=== PATIENT | female | born 1955 | race Caucasian/White ===

== ENCOUNTER 2021-08-31 15:54 | Inpatient (IN) | payer MEDICARE, SELFPAY ==
[2021-08-31] VITALS (20 sets, daily range): BP systolic 85–150; BP diastolic 48–78; PULSE 80–87; RESP 14–36; O2SAT 86–100
--- NOTE | ~2021-08-31 | XR_ITS ---
MODIFIED ESOPHAGRAM HISTORY: Aspiration pneumonia TECHNIQUE: Modified barium esophagram was performed by speech pathologist under radiologist fluorosco pic guidance. This was recorded on tape. The exam was reviewed on 09/02/2021 10:35 RADIO AERIAL INSTALLER. The DAP for this procedure was 1.6 Gycm2. Fluoroscopy time is 2.2 minutes. FINDINGS: Lateral projection of the cervical spine demonstrates normal alignment. Oral stage of is within normal limits. There is reduced laryngeal elevation, reduced tongue base retraction and follic ular residue as well as pharyngeal wall residue. There is trace laryngeal penetration without aspirat ion. IMPRESSION: 1: Trace laryngeal penetration with thin liquids without aspiration. 2: Please refer to speech pathologist report for additional detail. Reviewed, dictated and finalized at location A. O AERIAL INSTALLER
--- NOTE | ~2021-08-31 | XR_ITS ---
EXAMINATION: XR chest 1V portable INDICATION: Hypoxia TECHNIQUE: Portable AP chest at 1759 hours COMPARISON: None available FINDINGS: A tracheostomy is noted. There are interstitial and airspace opacities throughout all lung zones. No pleural effusion or pneumothorax is identified. Cardiomegaly is noted. A dual-lead cardiac pacemaker of the left chest wall ends with leads in expected locations. There are changes of cardiac valve surgery. IMPRESSION: 1. Cardiomegaly. 2. Diffuse lung disease which may reflect pneumonia and/or pulmonary edema. Reviewed, dictated and finalized at location F. MATION SOFTWARE ENGINEER
--- NOTE | ~2021-08-31 | CT_ITS ---
EXAMINATION: CT chest abdomen pelvis w con DATE: 09/01/2021 14:31 FLOW WORKER INDICATION: Leukocytosis. Wound VAC on chest. Pneumonia. TECHNIQUE: Computed tomography (CT) of the chest, abdomen, and pelvis was performed with 100 cc Omnip aque 350 intravenous contrast. The dose-length product was 1780.69 mGy-cm. Automated exposure control and iterative reconstruction technique were employed. COMPARISON: None FINDINGS: CHEST CT: There is subcutaneous soft tissue gas of the anterior chest wall. No drainable fluid collection is id entified. There is a tracheostomy tube present. Cardiomegaly. Small right pleural effusion. No thorac ic lymphadenopathy. This post median sternotomy for CABG. There is moderate edema and fluid of the ab dominal wall. There are patchy groundglass opacities with more focal consolidation of the right lower lobe, suspicious for pneumonia. Enlarged pulmonary arteries consistent with pulmonary hypertension. No large central pulmonary embolism. Cardiac pacemaker is present. There is ectasia of the thoracic a anthony.. ABDOMEN/PELVIS CT: Fatty infiltration of the liver. There is diffuse subcutaneous edema and fluid involving the abdomina l wall without evidence for drainable fluid collection. Butt catheter present in the bladder. Fatty infiltration of the liver. The spleen, pancreas, adrenal glands are unremarkable. There are gallstone s. There is a percutaneous gastrostomy present. There is advanced degenerative disc disease and spond ylosis of the lower thoracic and lumbar spine. There is ascites. Nonobstructive bowel gas pattern. IMPRESSION: 1. Abnormal subcutaneous chest wall gas and fatty infiltration, suspicious for infection. No drainabl e fluid collection identified. 2: Patchy groundglass opacities bilaterally, more confluent in the right lower lobe, suspicious for p neumonia. 3: Small right pleural effusion. 4: Diffuse subcutaneous edema and fluid of the abdominal wall without drainable fluid collection. 5: Cholelithiasis. 6: Small amount of ascites. Reviewed, dictated and finalized at location A. WORKER IMPRESSION: 1. Abnormal subcutaneous chest wall gas and fatty infiltration, suspicious for infection. No drainable fluid collection identified. 2: Patchy groundglass opacities bilaterally, more confluent in the right lower lobe, suspicious for pneumonia. 3: Small right pleural effusion. 4: Diffuse subcutaneous edema and fluid of the abdominal wall without drainabl e fluid collection. 5: Cholelithiasis. 6: Small amount of ascites.
--- NOTE | 2021-08-31 16:25 | ED.GENADULT ---
HPI - General Adult General Chief complaint: Unspecified Stated complaint: dislodged trach tube Time Seen by Provider: 08/31/21 16:00 Source: patient and RN notes reviewed Limitations: no limitations History of Present Illness HPI narrative: 66-year-old female with suspected recent history of tracheostomy presents to the emergency department from a local group home after her tracheostomy was dislodged. shelter was unable to replace the tube. They did place a size 2 ET tube. Upon arrival to the emergency room patient's trach was cleaned and replaced. Patient initially reported feeling improved after changing of the trach. Patient states that she feels she is breathing at her baseline. Patient does have a history of congestive heart failure, pulm hypertension, hypertension. Patient does have a trach due to a previous anoxic brain injury. Patient does have a feeding tube and has a wound VAC on her abdomen. shelter was unable to provide very much information on the patient. They state she just arrived to their facility just a few days ago but they are still unsure of which long care facility that she was transferred from. Related Data Allergies Allergy/AdvReac Type Severity Reaction Status Date / Time No Known Allergies Allergy Verified 08/31/21 15:59 Review of Systems Review of Systems: ROS unobtainable: Yes unobtainable due to medical condition Exam Narrative: APPEARANCE: ill appearing HEAD: normocephalic, atraumatic. 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 THROAT/Neck: trach, well appearing RESPIRATORY: Airway patent, respirations nonlabored. Distant breath sounds. Tachypnea CARDIOVASCULAR: Regular rate and rhythm without murmurs rubs or gallops. ABDOMINAL: Soft, nontender, nondistended, normal bowel sounds. Wound vac and feeding tube MUSCULOSKELETAL: Moves all extremities. NEURO: Alert. No focal deficit SKIN: extensive sacral decubitus ulcer. Course Course Emergency Course: Nurse did confirm with the group home that the primary reason for sending the patient in was for trach replacement. No other concerns at this time per group home. Patient began to desat even though her trach was in place. Able to maintain oxygenation on 2 liters. Chest x-ray was ordered and showed cardiomegaly and pulmonary edema versus pneumonia. Patient does have a leukocytosis of 19.8. Patient does have a BNP of 9000. COVID is pending. Patient was also treated with Lasix for her elevated BNP. Patient was treated with IV insulin for her hyperglycemia. Nurse did attempt again to contact both the patient's daughter and the patient's to determine more information where the patient had been hospitalized. Nurse is coming to recall the group home. The case was discussed with the hospitalist with the hospitalist does not feel comfortable admitting the patient to our facility with such a significant yet unknown past medical history. Obtaining chest abdomen and pelvis CT prior to admission here if unable to track down more information regarding her facilities of origin. Vital Signs Vital signs: Vital Signs Pulse Rate 80 08/31/21 15:58 Respiratory Rate 32 H 08/31/21 15:58 Blood Pressure 132/60 08/31/21 15:58 Pulse Oximetry 99 08/31/21 15:58 Pulse Rate 80 09/01/21 00:20 Respiratory Rate 24 H 09/01/21 00:20 Blood Pressure 107/39 L 09/01/21 00:20 Pulse Oximetry 97 09/01/21 00:20 Medical Decision Making Vital Signs Vital Signs: Vital Signs Pulse Rate 80 08/31/21 15:58 Respiratory Rate 32 H 08/31/21 15:58 Blood Pressure 132/60 08/31/21 15:58 Pulse Oximetry 99 08/31/21 15:58 Pulse Rate 80 09/01/21 00:20 Respiratory Rate 24 H 09/01/21 00:20 Blood Pressure 107/39 L 09/01/21 00:20 Pulse Oximetry 97 09/01/21 00:20 Lab Data Lab results reviewed: Yes I reviewed the patient's lab results. Result diagrams: 08/31/21 19:55
[2021-08-31] MEDS: ALBUTEROL SULFATE NEB 2.5 MG/0.5 ML INH 5 MG INHALATION (17:06)
--- NOTE | 2021-08-31 19:42 | PC.NURSE ---
Unsuccessful IV attempt x 1 (per Hardy RN PICC line is not pulling labs but flushes well). Pt refusing to let this RN place an IV at this time. Pulls arm away and states No, I am done. Also refusing blood cultures. Dr Shaw discussing w/ pt at this time.
[2021-08-31 19:45] LABS: Glucose Point of Care 395 mg/dl (65-105)
[2021-08-31 20:16] LABS: Basophils Absolute Auto 0.1 K/mm3 (0.0-0.1); Basophils Percent Auto 0.3 % (0.2-1.2); Hematocrit 25.4 % (37.0-47.0); Hemoglobin 7.7 g/dL (12.0-15.0); Immature Granulocyte Absolute 0.26 K/mm3 (0.00-0.031); Immature Granulocyte Percent A 1.3 % (0-0.5); Lymphocytes Absolute Auto 2.85 K/mm3 (0.9-3.2); Lymphocytes Percent Auto 14.4 % (18.3-44.2); Mean Corpuscular HGB Conc 30.3 g/dl (32-36); Mean Corpuscular Hemoglobin 24.5 pg (26-34); Mean Corpuscular Volume 80.9 fl (80-100); Mean Platelet Volume 9.3 fl (7.4-10.4); Monocytes Absolute Auto 1.7 K/mm3 (0.1-0.6); Monocytes Percent Auto 8.3 % (2.6-8.5); Neutrophils Percent Auto 75.7 % (45.5-73.1); Nucleated Red Blood Cells Absolute Auto 0.1 K/mm3 (0.0-0.012); Nucleated Red Blood Cells Perc 0.3 % (0.0-0.2); Platelet Count Result 756 k/mm3 (150-375); Red Blood Count 3.14 M/mm3 (4.2-5.4); Red Cell Distribution Width 22.3 % (11.5-14.5); White Blood Count 19.8 K/mm3 (4.5-10.0)
[2021-08-31 20:36] LABS: NT Pro B Type Natriuretic Pept 9130 pg/mL (5-100)
[2021-08-31 20:51] LABS: Alanine Aminotransferase 29 U/L (4-35); Albumin Level 3.2 g/dL (3.5-5.1); Alkaline Phosphatase 283 U/L (38-126); Anion Gap 10 mmol/L (8-16); Aspartate Amino Transferase 48 U/L (14-36); Bilirubin,Total 0.7 mg/dL (0.2-1.3); Blood Urea Nitrogen 60 mg/dL (7-17); Calcium 8.3 mg/dL (8.4-10.2); Carbon Dioxide 33 mmol/L (22-30); Chloride 86 mmol/L (98-107); Estimated CRCL calculation 73 ml/min; Estimated Glomerular Filt Rate > 60; Glucose 375 mg/dL (65-110); Potassium 4.4 mmol/L (3.4-5.0); Sodium 129 mmol/L (137-145)
[2021-08-31] MEDS: FUROSEMIDE INJ 100 MG/10 ML VIAL 80 MG IV PUSH (22:17)
--- NOTE | 2021-08-31 22:19 | PC.NURSE ---
Called [facility] for information - spoke to Sameera CALHOUN and was unable to provide previous hospital or any other info. Will call back w/ information. Also tried emergency contact number listed in [place] papers (daughter) no answer and no VM set up.
[2021-08-31 23:23] LABS: Troponin I 0.016 ng/mL (0.000-0.034)
[2021-09-01] VITALS (27 sets, daily range): BP systolic 91–142; BP diastolic 37–70; PULSE 69–80; RESP 16–35; TEMP 36.2–36.9; O2SAT 93–100; BMI 41.2
--- NOTE | 2021-09-01 00:11 | PC.NURSE ---
Called [facility] and requested info on pt arrival to ID and prior hospital for purpose of treatment. Per LJ Rea - she cannot find information, will continue to look and call back w/ any information. Hospitalist and EDP made aware of no new information. Called on contact list and LMTCB w/ no answer.
[2021-09-01] MEDS: INSULIN HUMAN REGULAR (*BKC) 100 UNITS/ML 7 UNITS IV PUSH (00:17)
--- NOTE | 2021-09-01 01:18 | PC.NURSE ---
BS 312
[2021-09-01 01:20] LABS: Glucose Point of Care 312 mg/dl (65-105)
--- NOTE | 2021-09-01 01:32 | PM.IMHP ---
H&P: HPI History of Present Illness Date/Time: 08/31/21 22:30 Chief Complaint: Dislodged tracheostomy Narrative: Source of information: Limited as will only have the med rec and face sheet from the [facility]. 66-year-old female with a past medical history of CHF, pulmonary hypertension, aortic and mitral valve replacement, diabetes mellitus, anoxic brain injury, respiratory failure with subsequent tracheostomy and G-tube placement who [facility] the ER from [facility] after her tracheostomy became dislodged. The patient was just [facility] . Multiple attempts were made to contact the patient's family and [facility] staff to obtain further information. half-way staff stated that they did not know any information on the patient except for the face sheet and med rec. Patient had some out dislodged her tracheostomy today and was sent to the ER to have it replaced. half-way did place a size 2 ET tube until the patient arrived to the ER. In the ER they were able to clean the patient's trach and replaced it. However after the tracheostomy was replaced the patient was noted to be hypoxic. She was placed on 2 L nasal cannula. Subsequently chest x-ray was performed which demonstrated pneumonia. The patient who is only alert oriented to self reported that she was not having any increased shortness of breath from baseline. She denied any recent cough. She is chronically incontinent of urine and stool. She has a Butt catheter in place at the time my evaluation. On exam she is noted to have an extremely large and tunneling buttock decubitus ulcer. She also had a wound VAC in place in substernal region. According to the [facility] records she has a breast/lower chest wound VAC. The reason for the wound VAC is unclear. I suspect that this is due to postop infection following her valve replacements but this is also position. The patient was afebrile in the ER. Patient has a G-tube in place there is no evidence of erythema around the G-tube. Labs returned demonstrating significant leukocytosis with a white count of 19.8 and an elevated BNP of 9000. The patient's immunization status is unknown. She was tested for COVID in the ER and results are pending. She received a dose of Lasix in the ER due to elevated BMP. She was noted to be markedly hyperglycemic and received a dose of IV insulin. Nursing staff tried to contact patient's family and [facility] staff. [facility] staff could not provide any relevant information. Family was unreachable. When the patient arrived to room she had stools packed of in her decubitus ulcer. Review of Systems Review of Systems: ROS unobtainable: Yes unobtainable due to mental status PMFSH Past Medical History Medical History (Updated 09/01/21 @ 13:58 by Jose F Barajas MD) Anoxic brain injury CHF (congestive heart failure) Chronic anemia Diabetes mellitus Hyperlipidemia Surgical History Surgical History (Updated 09/01/21 @ 20:40 by Joselin Collins DO) Gastrointestinal tube in situ History of aortic valve replacement History of mitral valve replacement Status cardiac pacemaker Tracheostomy in place Family History Family History Other Unknown family medical history Social History Social History (Updated 09/01/21 @ 09:18 by Joselin Collins DO) Social History: The patient is residing in a [facility] following anoxic brain injury with tracheostomy and G-tube placement. She was [facility] to [facility] 08/30/2021. Smoking status: Never smoker Alcohol intake: never Substance use: never Spiritual care concerns: No Meds Home Medications and Allergies Home Medications Medication Instructions Recorded Confirmed Type Fleet Enema 1 100 ml RECTAL PRN PRN 09/01/21 09/01/21 History aspirin 81 mg PO DAILY 09/01/21 09/01/21 Hist
[2021-09-01] MEDS: SODIUM CHLORIDE 0.9% IV 1,000 ML 125 ML IV CONT ×3 (05:54→19:52)
--- NOTE | 2021-09-01 06:25 | PC.NURSE ---
Pt trach suctioned at this time, 10 [place].
[2021-09-01] MEDS: INSULIN GLARGINE (*BKC) 100 UNITS/ML 15 UNITS SUB-Q (07:47)
[2021-09-01 07:56] LABS: Glucose Point of Care 295 mg/dl (65-105)
[2021-09-01 08:13] LABS: Add Urine Microscopic? NO; Appearance Urine Clear (Clear); Bilirubin Urine Negative (Negative); Blood Urine Negative (Negative); Color Urine Yellow (Yellow); Glucose Urine UA Negative (Negative); Ketones Urine Negative (Negative); Leukocyte Esterase Ur Negative LEU/UL (Negative); Nitrate Urine Negative (Negative); Protein Urine Negative (Negative); Urobilinogen Urine Negative mg/dL (<2.0)
--- NOTE | 2021-09-01 09:22 | PCSTNOTE ---
Addendum entered by Santi Rodrigez, SAW BOSS 09/01/21 10:37: Hospitalist is Jose F Barajas, attempted once more to reach. Treating RN made aware of hold on MBS. Original Note: Spoke with radiology regarding the MBS ordered for this patient. They stated that it is still protocol to wait until the COVID-pending status is confirmed negative. Radiology also indicated that they are only doing stat procedures as the system is down for now until further notice. Attempted to reach the hospitalist, however she is unavailable at this time.
[2021-09-01 09:29] LABS: Basophils Absolute Auto 0.1 K/mm3 (0.0-0.1); Basophils Percent Auto 0.3 % (0.2-1.2); Eosinophils Absolute Auto 0.2 K/mm3 (0-0.3); Eosinophils Percent Auto 0.8 % (0-4.4); Hematocrit 24.2 % (37.0-47.0); Hemoglobin 7.4 g/dL (12.0-15.0); Immature Granulocyte Absolute 0.21 K/mm3 (0.00-0.031); Immature Reticulocyte Fraction 42.1 % (3.0-15.9); Lymphocytes Absolute Auto 2.78 K/mm3 (0.9-3.2); Lymphocytes Percent Auto 13.5 % (18.3-44.2); Mean Corpuscular HGB Conc 30.6 g/dl (32-36); Mean Corpuscular Hemoglobin 24.3 pg (26-34); Mean Corpuscular Volume 79.3 fl (80-100); Mean Platelet Volume 9.1 fl (7.4-10.4); Monocytes Absolute Auto 1.7 K/mm3 (0.1-0.6); Monocytes Percent Auto 8.1 % (2.6-8.5); Neutrophils Absolute Auto 15.7 K/mm3 (1.3-6.7); Neutrophils Percent Auto 76.3 % (45.5-73.1); Nucleated Red Blood Cells Perc 0.1 % (0.0-0.2); Platelet Count Result 749 k/mm3 (150-375); Red Blood Count 3.05 M/mm3 (4.2-5.4); Red Cell Distribution Width 21.8 % (11.5-14.5); Reticulocyte Hemoglobin Conten 22.6 pg (28.2-35.7); Reticulocyte Percent 4.17 % (0.7-4.3); Reticulocytes Absolute 0.13 B/L (32.2-175.7); White Blood Count 20.6 K/mm3 (4.5-10.0)
[2021-09-01 09:45] LABS: Alanine Aminotransferase 25 U/L (4-35); Albumin Level 3.1 g/dL (3.5-5.1); Alkaline Phosphatase 251 U/L (38-126); Anion Gap 7 mmol/L (8-16); Aspartate Amino Transferase 34 U/L (14-36); Bilirubin,Total 0.6 mg/dL (0.2-1.3); Blood Urea Nitrogen 52 mg/dL (7-17); Calcium 8.3 mg/dL (8.4-10.2); Carbon Dioxide 34 mmol/L (22-30); Chloride 87 mmol/L (98-107); Estimated CRCL calculation 73 ml/min; Estimated Glomerular Filt Rate > 60; Glucose 295 mg/dL (65-110); Magnesium 1.8 mg/dL (1.6-2.3); Phosphorus 3.5 mg/dL (2.5-4.5); Potassium 3.6 mmol/L (3.4-5.0); Sodium 128 mmol/L (137-145)
--- NOTE | 2021-09-01 09:58 | PC.NURSE ---
this RN noticed pt desatting on monitor. assessed pt and trach. trach clogged with mucous. suctioned and cleaned trach and turned up O2 from 35% to 55%. Pt currently 95%
[2021-09-01] MEDS: INSULIN ASPART (*BKC) 100 UNITS/ML SUB-Q ×2 (10:14→14:26)
--- NOTE | 2021-09-01 10:17 | P.PNIM_ITS ---
Progress Note: A&P Assessment and Plan (1) Pneumonia: Qualifiers: Laterality: bilateral Lung location: unspecified part of lung Pneumonia type: due to unspecified organism Qualified Code(s): J18.9 - Pneumonia, unspecified organism Code(s): J18.9 - Pneumonia, unspecified organism Status: Acute Assessment and Plan: * Continue vancomycin and Zosyn * SARS-CoV2 rt-PCR pending (2) CHF (congestive heart failure): Qualifiers: Heart failure chronicity: acute on chronic Heart failure type: unspecified Qualified Code(s): I50.9 - Heart failure, unspecified Code(s): I50.9 - Heart failure, unspecified Status: Acute Assessment and Plan: * Receive furosemide 80 mg IV in emergency department * Monitor intake and output * Get records from [facility], re: cardiothoracic surgery (3) Hypoxia: Code(s): R09.02 - Hypoxemia Status: Acute Assessment and Plan: * Supplemental oxygen via tracheostomy (4) Diabetes mellitus with hyperglycemia: Qualifiers: Diabetes mellitus type: type 2 Diabetes mellitus joint terminal attack controller insulin use: with half-way use Qualified Code(s): E11.65 - Type 2 diabetes mellitus with hyperglycemia; Z79.4 - [facility] (current) use of insulin Code(s): E11.65 - Type 2 diabetes mellitus with hyperglycemia Status: Acute Assessment and Plan: * Basal and sliding scale insulin (5) Butt catheter in place: Code(s): Z97.8 - Presence of other specified devices Status: Acute Assessment and Plan: * Butt care per protocol (6) Anemia of chronic disease: Code(s): D63.8 - Anemia in other chronic diseases classified elsewhere Status: Acute Assessment and Plan: * Monitor (7) Decubitus ulcer: Qualifiers: Pressure injury location: sacral region Pressure injury stage: unspecified pressure injury stage Qualified Code(s): L89.159 - Pressure ulcer of sacral region, unspecified stage Code(s): L89.90 - Pressure ulcer of unspecified site, unspecified stage Status: Acute Assessment and Plan: * Wound care consult (8) Encounter for management of wound VAC: Code(s): Z46.89 - Encounter for fitting and adjustment of other specified devices Status: Acute Assessment and Plan: * Inframammary * Wound care consult (9) Thrombocytosis: Code(s): D75.839 - Thrombocytosis, unspecified Status: Acute Assessment and Plan: * Likely due to recent cardiothoracic surgery wound infection (10) Hyponatremia: Code(s): E87.1 - Hypo-osmolality and hyponatremia Status: Acute Assessment and Plan: * Mild * Clinically volume overloaded but effective intravascular volume may be depleted * Suspect this is chronic * TSH is normal, obtain cortisol all and fractional excretion of urea as well as serum and urine osmolality * Monitor and obtain records Subjective Date/time seen: 09/01/21 10:17 Interval history: Admitted August 31 from long-term after being there for only a few days following discharge from long-term acute [facility]. She had a tracheostomy and tube feeding. Because of tracheostomy being display she was sent into the emergency department. She developed desaturation there and was found to have pulmonary infiltrates. New tracheostomy was placed and supplemental high-flow oxygen was provided. Patient became more alert and able to express her needs. Unfortunately the long-term was unable to provide a past history. Chart
--- NOTE | 2021-09-01 10:17 | PM.IMPN ---
Progress Note: A&P Assessment and Plan (1) Pneumonia: Qualifiers: Laterality: bilateral Lung location: unspecified part of lung Pneumonia type: due to unspecified organism Qualified Code(s): J18.9 - Pneumonia, unspecified organism Code(s): J18.9 - Pneumonia, unspecified organism Status: Acute Assessment and Plan: Continue vancomycin and Zosyn SARS-CoV2 rt-PCR pending (2) CHF (congestive heart failure): Qualifiers: Heart failure chronicity: acute on chronic Heart failure type: unspecified Qualified Code(s): I50.9 - Heart failure, unspecified Code(s): I50.9 - Heart failure, unspecified Status: Acute Assessment and Plan: Receive furosemide 80 mg IV in emergency department Monitor intake and output Get records from [facility], re: cardiothoracic surgery (3) Hypoxia: Code(s): R09.02 - Hypoxemia Status: Acute Assessment and Plan: Supplemental oxygen via tracheostomy (4) Diabetes mellitus with hyperglycemia: Qualifiers: Diabetes mellitus type: type 2 Diabetes mellitus ocean transportation intermediary insulin use: with intermediate use Qualified Code(s): E11.65 - Type 2 diabetes mellitus with hyperglycemia; Z79.4 - [facility] (current) use of insulin Code(s): E11.65 - Type 2 diabetes mellitus with hyperglycemia Status: Acute Assessment and Plan: Basal and sliding scale insulin (5) Butt catheter in place: Code(s): Z97.8 - Presence of other specified devices Status: Acute Assessment and Plan: Butt care per protocol (6) Anemia of chronic disease: Code(s): D63.8 - Anemia in other chronic diseases classified elsewhere Status: Acute Assessment and Plan: Monitor (7) Decubitus ulcer: Qualifiers: Pressure injury location: sacral region Pressure injury stage: unspecified pressure injury stage Qualified Code(s): L89.159 - Pressure ulcer of sacral region, unspecified stage Code(s): L89.90 - Pressure ulcer of unspecified site, unspecified stage Status: Acute Assessment and Plan: Wound care consult (8) Encounter for management of wound VAC: Code(s): Z46.89 - Encounter for fitting and adjustment of other specified devices Status: Acute Assessment and Plan: Inframammary Wound care consult (9) Thrombocytosis: Code(s): D75.839 - Thrombocytosis, unspecified Status: Acute Assessment and Plan: Likely due to recent cardiothoracic surgery wound infection (10) Hyponatremia: Code(s): E87.1 - Hypo-osmolality and hyponatremia Status: Acute Assessment and Plan: Mild Clinically volume overloaded but effective intravascular volume may be depleted Suspect this is chronic TSH is normal, obtain cortisol all and fractional excretion of urea as well as serum and urine osmolality Monitor and obtain records Subjective Date/time seen: 09/01/21 10:17 Interval history: [facility] being [facility] for only a few days following discharge from [facility]-term acute care. She had a tracheostomy and tube feeding. Because of tracheostomy being display she was sent into the emergency department. She developed desaturation there and was found to have pulmonary infiltrates. New tracheostomy was placed and supplemental high-flow oxygen was provided. Patient became more alert and able to express her needs. Unfortunately the [facility] was unable to provide a past history. Chart contacts did not return phone calls. September 01 visit. Complains of generalized aching. Thirsty. Asking for soup. Denied focal pain. Denied shortness of breath. Review of Systems Review of Systems: ROS unobtainable: Yes unobtainable due to medical condition Exam Narrative: Frail-appearing elderly female who appears older than her stated age of 66 Sclerae nonicteric Blind left eye. Right eye pupil reac
[2021-09-01 10:23] LABS: Iron 36 ug/dL (37-170)
[2021-09-01 10:33] LABS: Percent Iron Saturation 14 % (20-50)
--- NOTE | 2021-09-01 10:35 | PC.NURSE ---
Speech therapy called and stated that since pt covid swab is not back they have to wait to do the swallow study
[2021-09-01 11:14] LABS: Folic Acid > 20.0 ng/mL (2.76->20); Vitamin B12 > 1000.0 pg/mL (239-931)
--- NOTE | 2021-09-01 11:46 | PC.NURSE ---
repositioned pt to her right side, changed depends and linens. Changed wound bandage
--- NOTE | 2021-09-01 12:01 | PC.NURSE ---
Pt asking for pain medication. Called Dr. Barajas and he states he will put in an order
[2021-09-01] MEDS: ACETAMINOPHEN ELIXIR 325 MG/10.15 ML UDC 650 MG FEED TUBE (12:29)
--- NOTE | 2021-09-01 13:33 | PC.NURSE ---
attempted to call pt son, Severo. No answer, left a voicemail
--- NOTE | 2021-09-01 13:51 | PC.NURSE ---
Son, Severo called back and gave me some more information on pt. He states that pt was at [facility] from 05/22/22-08/29/21 for open heart surgery.
--- NOTE | 2021-09-01 13:53 | PC.NURSE ---
Called Dr. Barajas and updated him on the information. Also asked if pt could have some broth. He states he will change diet to clear liquids
[2021-09-01 14:32] LABS: Glucose Point of Care 245 mg/dl (65-105)
[2021-09-01 16:14] LABS: Glucose Point of Care 207 mg/dl (65-105)
--- NOTE | 2021-09-01 16:34 | PC.NURSE ---
This patient, Irish Mtz, was admitted to IMU Room 201-01 on 09/01/21 at 1535. Patient/family oriented to hospital policies and general routines including ID bracelet, bed and alarms, visiting hours, pain management, procedures, bathroom and other care routines, personal items, smoking policy, room service/diet, and visiting hours. Information on how to activate the Rapid Response Team has been discussed. Patient/Family are encouraged to report perceived risks to care and to ask questions if they do not understand what they are told or what they should do.
--- NOTE | 2021-09-01 16:49 | PCRCNOTE ---
Window of time for administration has passed. See next scheduled administration.
[2021-09-01] MEDS: IPRATROPIUM BR 0.02% INH SOLN 0.5 MG/2.5 ML VIAL INHALATION (19:23)
[2021-09-01] MEDS: ALBUTEROL SULFATE NEB 2.5 MG/0.5 ML INH 5 MG INHALATION (19:23)
[2021-09-01] MEDS: ATORVASTATIN 20 MG TABLET FEED TUBE (21:33)
[2021-09-01 21:38] LABS: Glucose Point of Care 150 mg/dl (65-105)
[2021-09-01] MEDS: INSULIN GLARGINE (*BKC) 100 UNITS/ML 40 UNITS SUB-Q (21:50)
[2021-09-01 23:19] LABS: SARS-CoV-2 RNA PCR Negative
[2021-09-01 23:53] LABS: Urea Random Urine 606 MG/DL
[2021-09-02] VITALS (15 sets, daily range): BP systolic 103–123; BP diastolic 47–55; PULSE 80; RESP 20–22; TEMP 35.8–37; O2SAT 93–100
[2021-09-02 00:26] LABS: Prothrombin Time 22.4 Seconds (11.1-14.7)
[2021-09-02] MEDS: ACETAMINOPHEN ELIXIR 325 MG/10.15 ML UDC 650 MG FEED TUBE ×2 (01:50→11:07)
[2021-09-02 02:02] LABS: Glucose Point of Care 150 mg/dl (65-105)
[2021-09-02] MEDS: ALBUTEROL SULFATE NEB 2.5 MG/0.5 ML INH 5 MG INHALATION ×3 (02:11→13:45)
[2021-09-02] MEDS: IPRATROPIUM BR 0.02% INH SOLN 0.5 MG/2.5 ML VIAL INHALATION ×3 (02:12→13:46)
[2021-09-02] MEDS: WARFARIN (*PBKC) 5 MG TABLET PO (03:12)
[2021-09-02] MEDS: SERTRALINE HCL 50 MG TABLET FEED TUBE (03:12)
[2021-09-02] MEDS: MIRTAZAPINE 15 MG TABLET PO (03:14)
[2021-09-02 05:35] LABS: Anion Gap 7 mmol/L (8-16); Blood Urea Nitrogen 40 mg/dL (7-17); Calcium 8.2 mg/dL (8.4-10.2); Carbon Dioxide 33 mmol/L (22-30); Chloride 88 mmol/L (98-107); Estimated CRCL calculation 76 ml/min; Estimated Glomerular Filt Rate > 60; Glucose 161 mg/dL (65-110); Potassium 3.3 mmol/L (3.4-5.0); Sodium 128 mmol/L (137-145)
[2021-09-02 05:37] LABS: Basophils Absolute Auto 0.1 K/mm3 (0.0-0.1); Basophils Percent Auto 0.4 % (0.2-1.2); Eosinophils Absolute Auto 0.5 K/mm3 (0-0.3); Eosinophils Percent Auto 2.7 % (0-4.4); Hematocrit 24.7 % (37.0-47.0); Hemoglobin 7.4 g/dL (12.0-15.0); Immature Granulocyte Absolute 0.16 K/mm3 (0.00-0.031); Immature Granulocyte Percent A 0.8 % (0-0.5); Lymphocytes Absolute Auto 2.73 K/mm3 (0.9-3.2); Lymphocytes Percent Auto 13.5 % (18.3-44.2); Mean Corpuscular Volume 80.2 fl (80-100); Mean Platelet Volume 8.8 fl (7.4-10.4); Monocytes Absolute Auto 1.7 K/mm3 (0.1-0.6); Monocytes Percent Auto 8.4 % (2.6-8.5); Neutrophils Percent Auto 74.2 % (45.5-73.1); Nucleated Red Blood Cells Perc 0.1 % (0.0-0.2); Platelet Count Result 710 k/mm3 (150-375); Red Blood Count 3.08 M/mm3 (4.2-5.4); Red Cell Distribution Width 21.8 % (11.5-14.5); White Blood Count 20.2 K/mm3 (4.5-10.0)
[2021-09-02] MEDS: HYDROGEN PEROXIDE 3% SOLN(*SP) 473 ML BOTTLE (06:50)
[2021-09-02] MEDS: LANSOPRAZOLE ORAL SUSP 30 MG/10 ML ORAL.SUSP FEED TUBE (07:21)
[2021-09-02] MEDS: POTASSIUM PHOS/SODIUM PHOS 250 MG TABLET FEED TUBE ×3 (07:21→16:51)
[2021-09-02] MEDS: POTASSIUM CHLORIDE 20 MEQ PACKET (FOR LIQUID) 40 MEQ FEED TUBE (08:27)
[2021-09-02] MEDS: LOSARTAN POTASSIUM 25 MG TABLET PO (08:32)
[2021-09-02] MEDS: FUROSEMIDE 20 MG TABLET FEED TUBE (08:32)
[2021-09-02] MEDS: CHOLECALCIFEROL 1,000 UNITS TABLET 1000 UNITS FEED TUBE ×2 (08:33→16:51)
[2021-09-02] MEDS: FLUCONAZOLE 100 MG TABLET 200 MG FEED TUBE (08:33)
[2021-09-02] MEDS: LATANOPROST 0.005% OP SOLN 2.5 ML BTL 1 DROP RIGHT EYE (08:33)
[2021-09-02] MEDS: ASPIRIN 81 MG CHEWABLE TABLET FEED TUBE (08:33)
--- NOTE | 2021-09-02 09:21 | P.PNIM_ITS ---
Progress Note: A&P Assessment and Plan (1) Pneumonia: Qualifiers: Laterality: bilateral Lung location: unspecified part of lung Pneumonia type: due to unspecified organism Qualified Code(s): J18.9 - Pneumonia, unspecified organism Code(s): J18.9 - Pneumonia, unspecified organism Status: Acute Assessment and Plan: * Continue daptomycin, linezolid, and metronidazole as ordered following discharge from [facility] * Continue Zosyn as begun by emergency department September 01 * SARS-CoV2 rt-PCR negative (2) CHF (congestive heart failure): Qualifiers: Heart failure chronicity: acute on chronic Heart failure type: unspecified Qualified Code(s): I50.9 - Heart failure, unspecified Code(s): I50.9 - Heart failure, unspecified Status: Acute Assessment and Plan: * Receive furosemide 80 mg IV in emergency department 09/01 * Monitor intake and output * Get records from [facility], re: cardiothoracic surgery * Continue PO furosemide, metoprolol, losartan as her BP tolerates (3) Hypoxia: Code(s): R09.02 - Hypoxemia Status: Acute Assessment and Plan: * Supplemental oxygen via tracheostomy (4) Diabetes mellitus with hyperglycemia: Qualifiers: Diabetes mellitus type: type 2 Diabetes mellitus custodial insulin use: with clutch rebuilder use Qualified Code(s): E11.65 - Type 2 diabetes mellitus with hyperglycemia; Z79.4 - beach expert (current) use of insulin Code(s): E11.65 - Type 2 diabetes mellitus with hyperglycemia Status: Acute Assessment and Plan: * Basal and sliding scale insulin (5) Anemia of chronic disease: Code(s): D63.8 - Anemia in other chronic diseases classified elsewhere Status: Acute Assessment and Plan: * Monitor H/H, s/sx bleeding (6) Decubitus ulcer: Qualifiers: Pressure injury location: sacral region Pressure injury stage: unspecified pressure injury stage Qualified Code(s): L89.159 - Pressure ulcer of sacral region, unspecified stage Code(s): L89.90 - Pressure ulcer of unspecified site, unspecified stage Status: Acute Assessment and Plan: * Right heel * Continue daptomycin, linezolid, and metronidazole as ordered following discharge from [facility] * Wound care consult (7) Encounter for management of wound VAC: Code(s): Z46.89 - Encounter for fitting and adjustment of other specified devices Status: Acute Assessment and Plan: * Inframammary * Continue daptomycin, linezolid, and metronidazole as ordered following discharge from [facility] * Wound care consult (8) Thrombocytosis: Code(s): D75.839 - Thrombocytosis, unspecified Status: Acute Assessment and Plan: * Likely due to recent cardiothoracic surgery and wound infection (9) Hyponatremia: Code(s): E87.1 - Hypo-osmolality and hyponatremia Status: Acute Assessment and Plan: * Mild * Clinically volume overloaded but effective intravascular volume may be depleted * Suspect this is chronic * TSH is normal and cortisol is normal * FEurea = pending * Monitor and obtain records from [facility] (10) Sepsis: Qualifiers: Sepsis acute organ dysfunction status: with acute organ dysfunction Acute respiratory failure type: with hypoxia Severe sepsis shock status: with septic shock Sepsis type: sepsis due to unspecified organism Severe sepsis acute organ dysfunction type: acute respiratory failure Qualified Code(s): A41.9 - Sepsi
--- NOTE | 2021-09-02 09:21 | PM.IMPN ---
Progress Note: A&P Assessment and Plan (1) Pneumonia: Qualifiers: Laterality: bilateral Lung location: unspecified part of lung Pneumonia type: due to unspecified organism Qualified Code(s): J18.9 - Pneumonia, unspecified organism Code(s): J18.9 - Pneumonia, unspecified organism Status: Acute Assessment and Plan: Continue daptomycin, linezolid, and metronidazole as ordered following discharge from [facility] Continue Zosyn as begun by emergency department September 01 SARS-CoV2 rt-PCR negative (2) CHF (congestive heart failure): Qualifiers: Heart failure chronicity: acute on chronic Heart failure type: unspecified Qualified Code(s): I50.9 - Heart failure, unspecified Code(s): I50.9 - Heart failure, unspecified Status: Acute Assessment and Plan: Receive furosemide 80 mg IV in emergency department 09/01 Monitor intake and output Get records from [facility], re: cardiothoracic surgery Continue PO furosemide, metoprolol, losartan as her BP tolerates (3) Hypoxia: Code(s): R09.02 - Hypoxemia Status: Acute Assessment and Plan: Supplemental oxygen via tracheostomy (4) Diabetes mellitus with hyperglycemia: Qualifiers: Diabetes mellitus type: type 2 Diabetes mellitus termination clerk insulin use: with termination clerk use Qualified Code(s): E11.65 - Type 2 diabetes mellitus with hyperglycemia; Z79.4 - intermediate school teacher (current) use of insulin Code(s): E11.65 - Type 2 diabetes mellitus with hyperglycemia Status: Acute Assessment and Plan: Basal and sliding scale insulin (5) Anemia of chronic disease: Code(s): D63.8 - Anemia in other chronic diseases classified elsewhere Status: Acute Assessment and Plan: Monitor H/H, s/sx bleeding (6) Decubitus ulcer: Qualifiers: Pressure injury location: sacral region Pressure injury stage: unspecified pressure injury stage Qualified Code(s): L89.159 - Pressure ulcer of sacral region, unspecified stage Code(s): L89.90 - Pressure ulcer of unspecified site, unspecified stage Status: Acute Assessment and Plan: Right heel Continue daptomycin, linezolid, and metronidazole as ordered following discharge from [facility] Wound care consult (7) Encounter for management of wound VAC: Code(s): Z46.89 - Encounter for fitting and adjustment of other specified devices Status: Acute Assessment and Plan: Inframammary Continue daptomycin, linezolid, and metronidazole as ordered following discharge from [facility] Wound care consult (8) Thrombocytosis: Code(s): D75.839 - Thrombocytosis, unspecified Status: Acute Assessment and Plan: Likely due to recent cardiothoracic surgery and wound infection (9) Hyponatremia: Code(s): E87.1 - Hypo-osmolality and hyponatremia Status: Acute Assessment and Plan: Mild Clinically volume overloaded but effective intravascular volume may be depleted Suspect this is chronic TSH is normal and cortisol is normal FEurea = pending Monitor and obtain records from [facility] (10) Sepsis: Qualifiers: Sepsis acute organ dysfunction status: with acute organ dysfunction Acute respiratory failure type: with hypoxia Severe sepsis shock status: with septic shock Sepsis type: sepsis due to unspecified organism Severe sepsis acute organ dysfunction type: acute respiratory failure Qualified Code(s): A41.9 - Sepsis, unspecified organism; R65.21 - Severe sepsis with septic shock; J96.01 - Acute respiratory failure with hypoxia Code(s): A41.9 - Sepsis, unspecified organism Status: Acute Assessment and Plan: Present on admission with leukocytosis, known soft tissue infection, possible pneumonia, hypotension, hypoxia (11) Butt catheter in place: Code(s): Z97.8 - Presence of other specified devices
[2021-09-02] MEDS: metroNIDAZOLE 250 MG TABLET 500 MG PO ×2 (11:07→15:41)
[2021-09-02] MEDS: DAPTOmycin 500 MG in SODIUM CHLORIDE 0.9% IV 50 ML 100 MG IVPB (11:08)
[2021-09-02] MEDS: LINEZOLID 600 MG TABLET PO (11:09)
--- NOTE | 2021-09-02 13:07 | PCSTNOTE ---
Please refer to the Modified Barium Swallow Evaluation in the EMR.
[2021-09-02 13:13] LABS: Glucose Point of Care 172 mg/dl (65-105)
[2021-09-02] MEDS: hydrOXYzine HCL 25 MG TABLET 50 MG FEED TUBE (15:42)
--- NOTE | 2021-09-02 15:56 | PM.CNCAR ---
Assessment and Plan Assessment and plan (1) Pacemaker lead malfunction: Code(s): T82.110A - Breakdown (mechanical) of cardiac electrode, initial encounter Status: Acute Assessment and Plan: The patient is ventricular lead is showing intermittent non capture with a high impedance suggesting there may be an impending lead fracture/failure. We also do not know what the ventricular threshold is today since this was a remote check. Also the ventricular threshold was high on her last checkup. The longest pause we have seen is 9.8 seconds. There was no ventricular escape during that time. I have seen an occasional QRS complex but overall the patient appears to be pacemaker dependent ornearly dependent. I have spoken to the patient, the patient's son Severo (previously also her POA), and the patient's Micheal (who is her guardian, ) as well as a cardiac thoracic surgeon family friend Dr. Mohesn Caro. Apparently she had some type of pacer problem before (noted in interrogation re: atrial lead issue in the past) but this seems to be a new problem or at lead a progressive and also a very critical problem as she appears to be pacemaker dependent. I discussed options such as a temporary transvenous pacemaker wire, transfer to [facility], external pacing etc.. They requested transfer to [facility]. I discussed her situation with her surgeon, Dr. Alfredo Michaels who is going to contact the capter to see if she can be transferred to [facility]. I have discussed her situation with a pacemaker aircraft sales representative and have requested a personal interrogation of the device to see if we can program around the situation and obtain and true ventricular threshold. She may need a temporary transvenous pacemaker either here or at another institution to provide some security while a lasting solution is available and her infections clear. With her chest wound and sacral decubitus she is at risk of pacemaker infection if RV lead revision is attempted. I wonder if a leadless pacemaker would be a better solution? In the meantime, will place temporary pacing pads in case this situation progresses. However pt has said repeatedly that she does not want anything done here. (2) History of mitral valve replacement: Code(s): Z95.2 - Presence of prosthetic heart valve Status: Inactive Assessment and Plan: Mechanical mitral valve replacement 04/2021. (3) H/O mechanical aortic valve replacement: Code(s): Z95.2 - Presence of prosthetic heart valve Status: Acute Assessment and Plan: Mechanical aortic valve replacement 2016. (4) Chronic anticoagulation: Code(s): Z79.01 - roasterman (current) use of anticoagulants Status: Acute Assessment and Plan: INR goal for this patient is 2.5-3.5. INR today was 2.0. Will increase warfarin to 7 mg today then address daily. (5) CAD (coronary artery disease) of artery bypass graft: Code(s): I25.810 - Atherosclerosis of coronary artery bypass graft(s) without angina pectoris Status: Acute Assessment and Plan: CABG 2016. Coronary artery disease appears stable. (6) Anoxic encephalopathy: Code(s): G93.1 - Anoxic brain damage, not elsewhere classified Status: Acute Assessment and Plan: Patient's is her guardian. (7) Wound infection: Code(s): T14.8XXA - Other injury of unspecified body region, initial encounter; L08.9 - Local infection of the skin and subcutaneous tissue, unspecified Status: Acute Assessment and Plan: Has an incisional wound infection, status post procedures of the chest wall and wound VAC. (8) Sacral decubitus ulcer: Code(s): L89.159 - Pressure ulcer of sacral region, unspecified stage Status: Acute Assessment and Plan: Apparently has a sacral decubitus ulcer. (9) Tracheostomy in place: Code(s): Z93.0 - T
[2021-09-02] MEDS: WARFARIN (*PBKC) 5 MG TABLET FEED TUBE (16:51)
[2021-09-02 17:06] LABS: Glucose Point of Care 194 mg/dl (65-105)
--- NOTE | 2021-09-02 17:48 | P.TS_ITS ---
Transfer Discharge Sum: Prov Provider Date of admission: 09/02/21 15:51 Primary care physician: Samara Barajas, Admitting clinician: Joselin Collins DO Consults: 09/01/21 Wound/ET Consult Routine Reason for Consult:: Tunneling decubitus ulcer 09/02/21 Consult to Physician Routine Comment: Consulting Provider: Emilie Thurman Reason for consultation: pacemaker not consistently capturing Has provider been notified: Yes DS: Admitting Diagnosis Discharge Date September 02, 2021 Admitting Diagnosis Pneumonia with acute on chronic hypoxic respiratory failure DS: Discharge Diagnosis Discharge Diagnosis (1) Pneumonia: Qualifiers: Laterality: bilateral Lung location: unspecified part of lung Pneumonia type: due to unspecified organism Qualified Code(s): J18.9 - Pneumonia, unspecified organism Code(s): J18.9 - Pneumonia, unspecified organism Status: Acute Assessment and Plan: * Continue daptomycin, linezolid, and metronidazole as ordered following discharge from [facility] * Continue Zosyn as begun by emergency department September 01 * SARS-CoV2 rt-PCR negative (2) CHF (congestive heart failure): Qualifiers: Heart failure chronicity: acute on chronic Heart failure type: unspecified Qualified Code(s): I50.9 - Heart failure, unspecified Code(s): I50.9 - Heart failure, unspecified Status: Acute Assessment and Plan: * Receive furosemide 80 mg IV in emergency department 09/01 * Monitor intake and output * Get records from [facility], re: cardiothoracic surgery * Continue PO furosemide, metoprolol, losartan as her BP tolerates (3) Hypoxia: Code(s): R09.02 - Hypoxemia Status: Acute Assessment and Plan: * Supplemental oxygen via tracheostomy (4) Diabetes mellitus with hyperglycemia: Qualifiers: Diabetes mellitus type: type 2 Diabetes mellitus machine long goods helper insulin use: with mcfp use Qualified Code(s): E11.65 - Type 2 diabetes mellitus with hyperglycemia; Z79.4 - intermediate manager (current) use of insulin Code(s): E11.65 - Type 2 diabetes mellitus with hyperglycemia Status: Acute Assessment and Plan: * Basal and sliding scale insulin (5) Anemia of chronic disease: Code(s): D63.8 - Anemia in other chronic diseases classified elsewhere Status: Acute Assessment and Plan: * Monitor H/H, s/sx bleeding (6) Decubitus ulcer: Qualifiers: Pressure injury location: sacral region Pressure injury stage: unspecified pressure injury stage Qualified Code(s): L89.159 - Pressure ulcer of sacral region, unspecified stage Code(s): L89.90 - Pressure ulcer of unspecified site, unspecified stage Status: Acute Assessment and Plan: * Right heel * Continue daptomycin, linezolid, and metronidazole as ordered following discharge from [facility] * Wound care consult (7) Encounter for management of wound VAC: Code(s): Z46.89 - Encounter for fitting and adjustment of other specified devices Status: Acute Assessment and Plan: * Inframammary * Continue daptomycin, linezolid, and metronidazole as ordered following discharge from [facility] * Wound care consult (8) Thrombocytosis: Code(s): D75.839 - Thrombocytosis, unspecified Status: Acute Assessment and Plan: * Likely due to recent cardiothoracic surgery and wound infection (9) Hyponatre
--- NOTE | 2021-09-02 17:48 | PM.TDS ---
Transfer Discharge Sum: Prov Provider Date of admission: 09/02/21 15:51 Primary care physician: Samara Barajas, Admitting clinician: Joselin Collins DO Consults: 09/01/21 Wound/ET Consult Routine Reason for Consult:: Tunneling decubitus ulcer 09/02/21 Consult to Physician Routine Comment: Consulting Provider: Emilie Thurman Reason for consultation: pacemaker not consistently capturing Has provider been notified: Yes DS: Admitting Diagnosis Discharge Date September 02, 2021 Admitting Diagnosis Pneumonia with acute on chronic hypoxic respiratory failure DS: Discharge Diagnosis Discharge Diagnosis (1) Pneumonia: Qualifiers: Laterality: bilateral Lung location: unspecified part of lung Pneumonia type: due to unspecified organism Qualified Code(s): J18.9 - Pneumonia, unspecified organism Code(s): J18.9 - Pneumonia, unspecified organism Status: Acute Assessment and Plan: Continue daptomycin, linezolid, and metronidazole as ordered following discharge from [facility] Continue Zosyn as begun by emergency department September 01 SARS-CoV2 rt-PCR negative (2) CHF (congestive heart failure): Qualifiers: Heart failure chronicity: acute on chronic Heart failure type: unspecified Qualified Code(s): I50.9 - Heart failure, unspecified Code(s): I50.9 - Heart failure, unspecified Status: Acute Assessment and Plan: Receive furosemide 80 mg IV in emergency department 09/01 Monitor intake and output Get records from [facility], re: cardiothoracic surgery Continue PO furosemide, metoprolol, losartan as her BP tolerates (3) Hypoxia: Code(s): R09.02 - Hypoxemia Status: Acute Assessment and Plan: Supplemental oxygen via tracheostomy (4) Diabetes mellitus with hyperglycemia: Qualifiers: Diabetes mellitus type: type 2 Diabetes mellitus watermelon inspector insulin use: with watermelon inspector use Qualified Code(s): E11.65 - Type 2 diabetes mellitus with hyperglycemia; Z79.4 - skilled nursing (current) use of insulin Code(s): E11.65 - Type 2 diabetes mellitus with hyperglycemia Status: Acute Assessment and Plan: Basal and sliding scale insulin (5) Anemia of chronic disease: Code(s): D63.8 - Anemia in other chronic diseases classified elsewhere Status: Acute Assessment and Plan: Monitor H/H, s/sx bleeding (6) Decubitus ulcer: Qualifiers: Pressure injury location: sacral region Pressure injury stage: unspecified pressure injury stage Qualified Code(s): L89.159 - Pressure ulcer of sacral region, unspecified stage Code(s): L89.90 - Pressure ulcer of unspecified site, unspecified stage Status: Acute Assessment and Plan: Right heel Continue daptomycin, linezolid, and metronidazole as ordered following discharge from [facility] Wound care consult (7) Encounter for management of wound VAC: Code(s): Z46.89 - Encounter for fitting and adjustment of other specified devices Status: Acute Assessment and Plan: Inframammary Continue daptomycin, linezolid, and metronidazole as ordered following discharge from [facility] Wound care consult (8) Thrombocytosis: Code(s): D75.839 - Thrombocytosis, unspecified Status: Acute Assessment and Plan: Likely due to recent cardiothoracic surgery and wound infection (9) Hyponatremia: Code(s): E87.1 - Hypo-osmolality and hyponatremia Status: Acute Assessment and Plan: Mild Clinically volume overloaded but effective intravascular volume may be depleted Suspect this is chronic TSH is normal and cortisol is normal FEurea = pending Monitor and obtain records from [facility] (10) Sepsis: Qualifiers: Sepsis type: sepsis due to unspecified organism Sepsis acute organ dysfunction status: with acute organ dysfunction
[2021-09-04 19:19] LABS: Osmolality, Urine 414 mOsm/kg (50-1200)
== END 2021-09-02 19:45 | DRG 871 ==
LOC: ANHED 21:25 → ANHIMU 09-01 02:52
PROVIDERS: Emergency Medicine; Admitting Provider Internal Medicine; Emergency Provider Emergency Medicine; PCP Internal Medicine; Visit Provider Internal Medicine
DX: A41.9 Sepsis, unspecified organism (principal); R65.21 Severe sepsis with septic shock; J96.01 Acute respiratory failure with hypoxia; J18.9 Pneumonia, unspecified organism; G93.1 Anoxic brain damage, not elsewhere classified; E87.1 Hypo-osmolality and hyponatremia; T82.110A Breakdown (mechanical) of cardiac electrode, initial encounter; Z43.0 Encounter for attention to tracheostomy; I11.0 Hypertensive heart disease with heart failure; I50.9 Heart failure, unspecified; I27.20 Pulmonary hypertension, unspecified; Z20.822 Contact with and (suspected) exposure to COVID-19; L89.159 Pressure ulcer of sacral region, unspecified stage; Z95.2 Presence of prosthetic heart valve; Z95.0 Presence of cardiac pacemaker; Z79.01 Long term (current) use of anticoagulants; E11.65 Type 2 diabetes mellitus with hyperglycemia; Z93.1 Gastrostomy status; R32 Unspecified urinary incontinence; R15.9 Full incontinence of feces; D63.8 Anemia in other chronic diseases classified elsewhere; D75.839 Thrombocytosis, unspecified; Z79.82 Long term (current) use of aspirin; Z79.4 Long term (current) use of insulin; Y71.1 Therapeutic (nonsurgical) and rehabilitative cardiovascular devices associated with adverse incidents; Y92.9 Unspecified place or not applicable
CPT/HCPCS: 36415; 71045; 71260; 74177; 80048; 80053; 81003; 82533; 82607; 82746; 82948; 83540; 83550; 83735; 83880; 83930; 83935; 84100; 84443; 84484; 84540; 85025; 85046; 85610; 87040; 92611; 94640; 96361; 96365; 96366; 96367; 96375; 96376; 99285; A9270; C9803; G0378; J0878; J1815; J1940; J2543; J3370; J7030; Q9967; U0003; U0005

== ENCOUNTER 2021-09-16 13:09 | Emergency (ER) | payer MEDICARE, SELFPAY ==
[2021-09-16 13:21] VITALS: BP 120/52; PULSE 81; RESP 18; TEMP 36.3; O2SAT 96
[2021-09-16 13:24] VITALS: RESP 18
[2021-09-16 14:00] VITALS: BP 124/60; PULSE 81; RESP 18; TEMP 36.4; O2SAT 96
--- NOTE | 2021-09-16 14:24 | ED.GENADULT ---
HPI - General Adult General Chief complaint: Unspecified Stated complaint: DISLODGED TRACH Time Seen by Provider: 09/16/21 13:58 Source: patient and family Mode of arrival: EMS Limitations: clinical condition History of Present Illness HPI narrative: 66-year-old female Patient is now a resident at a local SNF However before that she was a patient at [facility] where she had and apparently lengthy and complicated course following a heart procedure culminating amongst other difficulties a and the need for a tracheostomy to be placed She is here with her daughter now and neither one of them are quite sure what the plan for the trach is Accounts diverge, the patient indicates that the trach cannula was accidentally dislodged at the SNF, the patient's daughter indicates that she was told that her mom pulled it out Either way it is out, and she seems to be doing just fine without it Her O2 sats are fine at the bedside, she is talking, and seems to be having no issue breathing at all Related Data Home Medications Medication Instructions Recorded Confirmed Fleet Enema 1 100 ml RECTAL PRN PRN 09/01/21 09/01/21 aspirin 81 mg PO DAILY 09/01/21 09/01/21 atorvastatin 20 mg FEEDING TUBE HS 09/01/21 09/01/21 bisacodyl [Laxative (bisacodyl)] 10 mg RECTAL DAILY PRN 09/01/21 09/01/21 cholecalciferol (vitamin D3) 25 mcg PO BID 09/01/21 09/01/21 clonazepam 0.5 mg PO HS 09/01/21 09/01/21 daptomycin 500 mg IV Q24H 09/01/21 09/01/21 fluconazole 200 mg PO DAILY 09/01/21 09/01/21 fluticasone propion-salmeterol 1 ea INHALATION HS 09/01/21 09/01/21 [Advair Diskus] furosemide 20 mg PO DAILY 09/01/21 09/01/21 hydroxyzine HCl 50 mg PO QID PRN 09/01/21 09/01/21 insulin glargine [Basaglar KwikPen 20 unit SUBCUT BID 09/01/21 09/01/21 U-100 Insulin] latanoprost 1 drp RIGHT EYE DAILY 09/01/21 09/01/21 linezolid 600 mg PO Q12H 09/01/21 09/01/21 losartan 25 mg PO DAILY 09/01/21 09/01/21 magnesium citrate [Citroma] 300 ml PO DAILY PRN 09/01/21 09/01/21 magnesium hydroxide [Milk of 400 mg PO HS PRN 09/01/21 09/01/21 Magnesia] metoprolol tartrate 50 mg PO Q12H 09/01/21 09/01/21 metronidazole 500 mg PO Q8H 09/01/21 09/01/21 mirtazapine 15 mg PO HS 09/01/21 09/01/21 pantoprazole 40 mg PO BID 09/01/21 09/01/21 sertraline 50 mg PO HS 09/01/21 09/01/21 sod phos di, mono-K phos mono 1 tablet PO AC 09/01/21 09/01/21 [Phospho-[place] 250 Neutral] warfarin 5 mg PO QPM 09/01/21 09/02/21 Allergies Allergy/AdvReac Type Severity Reaction Status Date / Time No Known Allergies Allergy Verified 08/31/21 15:59 Review of Systems ENT: Comments: Tracheostomy present Respiratory: Respiratory: Reports no additional respiratory complaints, Denies change in phlegm color and Reports cough PMFSH Past Medical History Medical History Anoxic brain injury CAD (coronary artery disease) of artery bypass graft 2015 CHF (congestive heart failure) Chronic anemia Diabetes mellitus Hyperlipidemia Pacemaker Dual chamber [employer] pacemaker, 2016 Surgical History Surgical History Gastrointestinal tube in situ H/O mechanical aortic valve replacement 2016 History of aortic valve replacement History of mitral valve replacement 04/2021, Dr. Alfredo Michaels at [facility] Status cardiac pacemaker Tracheostomy in place Family History Family History Other Unknown family medical history Social History Social History Social History: The patient is residing in a retirement facility following anoxic brain injury with tracheostomy and G-tube placement. She was discharged to retirement facility 08/30/2021. Smoking status: Never smoker Alcohol intake: never Substance use: never Spiritual care concerns: No Ex
--- NOTE | 2021-09-16 14:38 | PC.NURSE ---
ATTEMPTED TO CALL NH TO GIVE REPORTS AND NURSE NOT AVAILABLE. INFORMED ANOTHER NURSE PT IS READY TO RETURN AND EMS HAS BEEN CALLED TO TRANSPORT PT BACK [facility]
[2021-09-16 15:05] VITALS: BP 124/52; PULSE 78; RESP 16; O2SAT 97
[2021-09-16 15:22] VITALS: BP 118/58; PULSE 81; RESP 16; TEMP 36.6; O2SAT 97
== END 2021-09-16 15:24 ==
PROVIDERS: Emergency Provider Emergency Medicine; PCP Internal Medicine
DX: Z43.0 Encounter for attention to tracheostomy (principal); G93.1 Anoxic brain damage, not elsewhere classified; I25.810 Atherosclerosis of coronary artery bypass graft(s) without angina pectoris; I50.9 Heart failure, unspecified; E11.9 Type 2 diabetes mellitus without complications; E78.5 Hyperlipidemia, unspecified; Z93.1 Gastrostomy status; Z95.0 Presence of cardiac pacemaker; D64.9 Anemia, unspecified; Z95.2 Presence of prosthetic heart valve; Z79.82 Long term (current) use of aspirin; Z79.4 Long term (current) use of insulin; Z79.01 Long term (current) use of anticoagulants
CPT/HCPCS: 99282

== ENCOUNTER 2021-09-17 04:31 | Emergency (ER) | payer MEDICARE, SELFPAY ==
--- NOTE | ~2021-09-17 | XR_ITS ---
EXAMINATION: XR chest 1V portable DATE: 09/17/2021 04:59 INDICATION: Dyspnea. TECHNIQUE: A single frontal view of the chest was obtained. COMPARISON: Chest single view 08/31/2021, chest CT 09/17/2021 FINDINGS: There are airspace opacities in the perihilar regions. No visible pleural effusion. No pneu mothorax. Cardiomegaly is noted. There are changes of heart valve replacements. There is a left chest wall pacer with leads in the right atrium and right ventricle. A tracheostomy tube is noted. IMPRESSION: 1. Airspace opacities in the perihilar regions, likely mild pulmonary edema. 2. Cardiomegaly. Reviewed, dictated and finalized at location A. RSHED COORDINATOR
--- NOTE | ~2021-09-17 | CT_ITS ---
EXAMINATION: CTA chest PE protocol DATE: 09/17/2021 06:39 INDICATION: Dyspnea. TECHNIQUE: Computed tomography angiography (CTA) of the chest was performed with 100 mL Omnipaque-350 intravenous contrast timed to evaluate the pulmonary arteries. Coronal maximum intensity projection 3D-reconstructions were created by the technologist. Automated exposure control and iterative reconst ruction technique were employed. The dose-length product was 795.22 mGy-cm. COMPARISON: Chest CT 09/01/2021 FINDINGS: There is a tracheostomy tube in expected position. There is smooth septal thickening in the lungs, consistent with mild pulmonary edema. There is mosaic attenuation in left upper lobe, likely small airways disease. There is a small right pleural effusion. Cardiomegaly is noted. There are lozada ges of mitral and aortic valve replacements. There is a left chest wall pacer with leads in the right atrium and right ventricle. There is thickening of the adrenal glands, likely benign. The central pu lmonary arteries are enlarged, consistent with pulmonary arterial hypertension. There is no pulmonary embolus. There is a wound with packing in anterior chest wall. There are healing bilateral anterior rib fractures. There is moderate thoracic spondylosis. IMPRESSION: 1. No pulmonary embolus. 2. Mild pulmonary edema. 3. Small right pleural effusion. 4. Cardiomegaly. 5. Anterior chest wall wound with packing material. Reviewed, dictated and finalized at location A. TAL RECRUITER
[2021-09-17 04:37] VITALS: BP 154/63; PULSE 86; RESP 25; TEMP 36.6; O2SAT 100
[2021-09-17 04:41] LABS: Glucose Point of Care 356 mg/dl (65-105)
--- NOTE | 2021-09-17 04:45 | ECG_ITS ---
Measurements Intervals [place] Rate: 84 P: ND: 0 QRS: 143 QRSD: 189 T: -4 QT: 455 QTc: 539 Interpretive Statements ELECTRONIC VENTRICULAR PACEMAKER UNDERLYING PROBABLY ATRIAL FLUTTER/TACHYCARDIA BASELINE ARTIFACT- II NO FURTHER INTERPRETATION IS POSSIBLE ABNORMAL ECG Electronically Signed On 09-17-2021 6:40:30 FLATTENING PRESS OPERATOR by Dennis Frey D.O.
--- NOTE | 2021-09-17 04:50 | ED.SOB ---
HPI - SOB/Dyspnea General Chief Complaint: Shortness of Breath/Dyspnea Stated Complaint: clogged trach with labored resps - non labored now Time Seen by Provider: 09/17/21 04:40 Source: patient History of Present Illness HPI Narrative: Patient with complex medical history she had a mitral valve replaced several months ago complicated by cardiac arrest resulting in anoxic brain injury tracheostomy placement. She was seen a couple weeks ago at this facility and was transferred to [facility], where her primary care is given, for pacemaker lead malfunction. She returns today for shortness of breath. She resides in a nursing facility. To have acute respiratory distress and a clogged trach which was suctioned and her symptoms improved however she continued to have slight increased work of breathing and was referred to the ER for evaluation. Patient does report feeling short of breath she denies any fevers cough focal areas of pain nausea vomiting or diarrhea. Related Data Home Medications Medication Instructions Recorded Confirmed Fleet Enema 1 100 ml RECTAL PRN PRN 09/01/21 09/01/21 aspirin 81 mg PO DAILY 09/01/21 09/01/21 atorvastatin 20 mg FEEDING TUBE HS 09/01/21 09/01/21 bisacodyl [Laxative (bisacodyl)] 10 mg RECTAL DAILY PRN 09/01/21 09/01/21 cholecalciferol (vitamin D3) 25 mcg PO BID 09/01/21 09/01/21 clonazepam 0.5 mg PO HS 09/01/21 09/01/21 daptomycin 500 mg IV Q24H 09/01/21 09/01/21 fluconazole 200 mg PO DAILY 09/01/21 09/01/21 fluticasone propion-salmeterol 1 ea INHALATION HS 09/01/21 09/01/21 [Advair Diskus] furosemide 20 mg PO DAILY 09/01/21 09/01/21 hydroxyzine HCl 50 mg PO QID PRN 09/01/21 09/01/21 insulin glargine [Basaglar KwikPen 20 unit SUBCUT BID 09/01/21 09/01/21 U-100 Insulin] latanoprost 1 drp RIGHT EYE DAILY 09/01/21 09/01/21 linezolid 600 mg PO Q12H 09/01/21 09/01/21 losartan 25 mg PO DAILY 09/01/21 09/01/21 magnesium citrate [Citroma] 300 ml PO DAILY PRN 09/01/21 09/01/21 magnesium hydroxide [Milk of 400 mg PO HS PRN 09/01/21 09/01/21 Magnesia] metoprolol tartrate 50 mg PO Q12H 09/01/21 09/01/21 metronidazole 500 mg PO Q8H 09/01/21 09/01/21 mirtazapine 15 mg PO HS 09/01/21 09/01/21 pantoprazole 40 mg PO BID 09/01/21 09/01/21 sertraline 50 mg PO HS 09/01/21 09/01/21 sod phos di, mono-K phos mono 1 tablet PO AC 09/01/21 09/01/21 [Phospho-Paola 250 Neutral] warfarin 5 mg PO QPM 09/01/21 09/02/21 Allergies Allergy/AdvReac Type Severity Reaction Status Date / Time No Known Allergies Allergy Unverified 09/17/21 11:39 Review of Systems Review of Systems: CONSTITUTIONAL: Denies fever, chills, or sweats. EYES: Denies visual changes, redness, or discharge. ENT: Denies rhinorrhea, congestion, sore throat, or otalgia. CARDIOVASCULAR: Denies chest pain, palpitations, or edema. RESPIRATORY: Reports shortness of breath GASTROINTESTINAL: Denies abdominal pain, nausea, vomiting, or diarrhea. GENITOURINARY: Denies dysuria or hematuria. SKIN: Denies rash or itching. MUSCULOSKELETAL: Denies back pain, joint pain, or myalgia. NEUROLOGIC: Denies headache, numbness, dizziness, or weakness. PSYCHIATRIC: Denies anxiety or depression. All systems reviewed & are unremarkable except as noted in HPI and below PMFSH Past Medical History Medical History Anoxic brain injury CAD (coronary artery disease) of artery bypass graft 2015 CHF (congestive heart failure) Chronic anemia Diabetes mellitus Hyperlipidemia Pacemaker Dual chamber [employer] pacemaker, 2016 Surgical History Surgical History Gastrointestinal tube in situ H/O mechanical aortic valve replacement 2015 History of aortic valve replacement History of mitral valve replacement 04/2021, Dr. Alfredo Michaels at [facility] Status cardiac pacemaker Tracheostomy in place Family History Family History (Reviewed
[2021-09-17 05:25] LABS: Basophils Absolute Auto 0.1 K/mm3 (0.0-0.1); Basophils Percent Auto 0.5 % (0.2-1.2); Eosinophils Percent Auto 0.1 % (0-4.4); Hematocrit 30.6 % (37.0-47.0); Immature Granulocyte Absolute 0.17 K/mm3 (0.00-0.031); Immature Granulocyte Percent A 1.1 % (0-0.5); Lymphocytes Absolute Auto 0.92 K/mm3 (0.9-3.2); Mean Corpuscular HGB Conc 29.4 g/dl (32-36); Mean Corpuscular Volume 81.6 fl (80-100); Mean Platelet Volume 8.8 fl (7.4-10.4); Monocytes Absolute Auto 1.3 K/mm3 (0.1-0.6); Monocytes Percent Auto 8.1 % (2.6-8.5); Neutrophils Percent Auto 84.2 % (45.5-73.1); Platelet Count Result 568 k/mm3 (150-375); Red Blood Count 3.75 M/mm3 (4.2-5.4); Red Cell Distribution Width 21.2 % (11.5-14.5); White Blood Count 15.4 K/mm3 (4.5-10.0)
[2021-09-17 05:36] LABS: INR 1.9; Partial Thromboplastin Time 32.1 SECONDS (22.3-36.8); Prothrombin Time 21.2 Seconds (11.1-14.7)
[2021-09-17 05:41] LABS: Add Urine Microscopic? YES; Appearance Urine Clear (Clear); Bacteria Urine Trace /hpf; Bilirubin Urine Negative (Negative); Blood Urine 2+ (Negative); Color Urine Amber (Yellow); Glucose Urine UA 1+ mg/dL (Negative); Hyaline Casts Urine 20-29 /lpf; Ketones Urine Negative (Negative); Leukocyte Esterase Ur Negative LEU/UL (Negative); Mucus Urine Few /lpf; Nitrate Urine Negative (Negative); Protein Urine 3+ mg/dL (Negative); RBC Urine >75 /hpf (0-2); Specific Grav Ur 1.022 (1.001-1.035); Squamous Epithelial Cell Urine Occasional /hpf (Few)
[2021-09-17 05:42] LABS: Alanine Aminotransferase 32 U/L (4-35); Albumin Level 3.3 g/dL (3.5-5.1); Alkaline Phosphatase 235 U/L (38-126); Anion Gap 4 mmol/L (8-16); Aspartate Amino Transferase 34 U/L (14-36); Bilirubin,Total 0.6 mg/dL (0.2-1.3); Blood Urea Nitrogen 18 mg/dL (7-17); Calcium 8.6 mg/dL (8.4-10.2); Carbon Dioxide 25 mmol/L (22-30); Chloride 101 mmol/L (98-107); Estimated Glomerular Filt Rate > 60; Glucose 366 mg/dL (65-110); Sodium 130 mmol/L (137-145)
[2021-09-17 05:42] LABS: Alveolar/Arterial O2 Gradient 153.4 mmHg; Base Excess ABG -0.8 mEq/l (+/-2.0); Fractional Inspired Oxygen 44 %; HCO3 ABG 25.2 mEq/l (22.0-26.0); Oxygen Content ABG 13.6 %vol (16.0-22.0); Oxygen Saturation ABG 97.6 % (95.0-100.0); Oxyhemoglobin 96.6 % THb (90.0-100.0); PCO2 ABG 47.4 mmHg (35.0-45.0); PO2 ABG 106.3 mmHg (80.0-100.0); PO2 FiO2 Ratio Arterial Blood 2.42 %; Total Hemoglobin 9.9 g/dL (12.0-18.0); pH ABG 7.343 (7.350-7.450)
[2021-09-17 05:43] LABS: Device OTHER DEVICE; Modified Allen's Test Pass; Site Drawn LEFT RADIAL
[2021-09-17 05:46] VITALS: BP 120/97; PULSE 84; RESP 29; O2SAT 100
[2021-09-17 05:51] LABS: NT Pro B Type Natriuretic Pept 7860 pg/mL (5-100)
[2021-09-17 06:02] LABS: Hypochromasia 1+ (NORMAL); Platelet Estimate Increased (Adequate)
[2021-09-17 06:03] LABS: Anisocytosis 1+ (NORMAL)
[2021-09-17] MEDS: INSULIN HUMAN REGULAR (*BKC) 100 UNITS/ML 7 UNITS SUB-Q (07:29)
[2021-09-17 07:31] VITALS: BP 122/52; PULSE 83; RESP 20; O2SAT 98
[2021-09-17 07:34] LABS: Glucose Point of Care 347 mg/dl (65-105)
--- NOTE | 2021-09-17 07:40 | PC.NURSE ---
made contact with [facility], [facility], and [facility] to transfer pt home to [facility] in [place]. all companies declined. made contact with [facility] to transfer pt. [facility] accepted with [facility] [phone]
--- NOTE | 2021-09-17 08:02 | PC.NURSE ---
wilber has arrived and is aware that pt is going to [facility] in [place]
== END 2021-09-17 08:16 ==
PROVIDERS: Emergency Provider Emergency Medicine; PCP Internal Medicine
DX: R06.00 Dyspnea, unspecified (principal); G93.1 Anoxic brain damage, not elsewhere classified; I25.810 Atherosclerosis of coronary artery bypass graft(s) without angina pectoris; I50.9 Heart failure, unspecified; D64.9 Anemia, unspecified; E78.5 Hyperlipidemia, unspecified; E11.9 Type 2 diabetes mellitus without complications; Z93.0 Tracheostomy status; Z95.0 Presence of cardiac pacemaker; Z95.2 Presence of prosthetic heart valve; Z79.01 Long term (current) use of anticoagulants; Z79.4 Long term (current) use of insulin; Z79.82 Long term (current) use of aspirin; R94.31 Abnormal electrocardiogram [ECG] [EKG]; I51.7 Cardiomegaly; J81.1 Chronic pulmonary edema
CPT/HCPCS: 36415; 36600; 71045; 71275; 80053; 81001; 82805; 82948; 83880; 85025; 85610; 85730; 93005; 99284; J1815; Q9967

== ENCOUNTER 2021-09-17 11:39 | Observation (INO) | payer MEDICARE, SELFPAY ==
[2021-09-17] VITALS (15 sets, daily range): BP systolic 101–161; BP diastolic 46–78; PULSE 82–97; RESP 17–36; TEMP 36.6; O2SAT 96–100
--- NOTE | 2021-09-17 11:51 | PC.NURSE ---
EDP at bedside, Respiratory contacted.
[2021-09-17] MEDS: IPRATROPIUM BR 0.02% INH SOLN 0.5 MG/2.5 ML VIAL INHALATION (12:00)
[2021-09-17] MEDS: ALBUTEROL SULFATE NEB 2.5 MG/3 ML INH 1.25 MG INHALATION (12:00)
--- NOTE | 2021-09-17 12:52 | PC.NURSE ---
Pt suctioned at this time.
--- NOTE | 2021-09-17 13:44 | PC.NURSE ---
called [facility], got response on 3rd call, spoke with RN who states that they do have suction available for pt but they cannot keep up with the secretions she is making. RISK REDUCTION COUNSELOR placed on phone, SUDEEP Ricks speaking with RISK REDUCTION COUNSELOR at this time.
--- NOTE | 2021-09-17 14:17 | ED.SOB ---
HPI - SOB/Dyspnea General Chief Complaint: Shortness of Breath/Dyspnea Stated Complaint: DIFFICULTY BREATHING Time Seen by Provider: 09/17/21 11:47 Source: EMS and RN notes reviewed Mode of arrival: EMS Limitations: clinical condition History of Present Illness HPI Narrative: 66-year-old with a history of hypertension, diabetes, s/p mitral valve replacement followed by cardiac arrest, anoxic brain injury s/p tracheostomy presently residing in a long term who was sent back again for shortness of breath. Patient was seen earlier this morning and was discharged back to the long term and has a work-up was unremarkable. As per the nurse practitioner patient started having more difficulty in breathing upon arrival to the long term. She states that her secretions are more thickened and they are unable to care for her at the long term. As per the EMS they did suction her and her SPO2 improved. Upon arrival patient is anxious but she states that she is feeling fine MD elicited complaint: shortness of breath Pertinent past history: tracheostomy Onset (ago): hour(s) (1) Timing: intermittent Severity: moderate Exacerbating factors: nothing Relieving factors: other (Frequent suctioning) Associated symptoms: denies other symptoms Treatment prior to arrival: oxygen and other (And suctioning) Related Data Home Medications Medication Instructions Recorded Confirmed Fleet Enema 1 100 ml RECTAL PRN PRN 09/01/21 09/01/21 aspirin 81 mg PO DAILY 09/01/21 09/01/21 atorvastatin 20 mg FEEDING TUBE 09/01/21 09/01/21 bisacodyl [Laxative (bisacodyl)] 10 mg RECTAL DAILY PRN 09/01/21 09/01/21 cholecalciferol (vitamin D3) 25 mcg PO BID 09/01/21 09/01/21 clonazepam 0.5 mg PO 09/01/21 09/01/21 daptomycin 500 mg IV Q24H 09/01/21 09/01/21 fluconazole 200 mg PO DAILY 09/01/21 09/01/21 fluticasone propion-salmeterol 1 ea INHALATION HS 09/01/21 09/01/21 [Advair Diskus] furosemide 20 mg PO DAILY 09/01/21 09/01/21 hydroxyzine HCl 50 mg PO QID PRN 09/01/21 09/01/21 insulin glargine [Basaglar KwikPen 20 unit SUBCUT BID 09/01/21 09/01/21 U-100 Insulin] latanoprost 1 drp RIGHT EYE DAILY 09/01/21 09/01/21 linezolid 600 mg PO Q12H 09/01/21 09/01/21 losartan 25 mg PO DAILY 09/01/21 09/01/21 magnesium citrate [Citroma] 300 ml PO DAILY PRN 09/01/21 09/01/21 magnesium hydroxide [Milk of 400 mg PO HS PRN 09/01/21 09/01/21 Magnesia] metoprolol tartrate 50 mg PO Q12H 09/01/21 09/01/21 metronidazole 500 mg PO Q8H 09/01/21 09/01/21 mirtazapine 15 mg PO HS 09/01/21 09/01/21 pantoprazole 40 mg PO BID 09/01/21 09/01/21 sertraline 50 mg PO HS 09/01/21 09/01/21 sod phos di, mono-K phos mono 1 tablet PO AC 09/01/21 09/01/21 [Phospho-Paola 250 Neutral] warfarin 5 mg PO QPM 09/01/21 09/02/21 Allergies Allergy/AdvReac Type Severity Reaction Status Date / Time No Known Allergies Allergy Unverified 09/17/21 11:39 Review of Systems Review of Systems: All systems reviewed & are unremarkable except as noted in HPI and below Constitutional: Constitutional: Reports no additional constitutional complaints Eyes: Eyes: Reports no additional eye complaints ENT: Reports system reviewed and no additional complaints, except as documented Cardiovascular: Cardiovascular: Reports no additional cardiovascular complaints Respiratory: Respiratory: Reports as per HPI Gastrointestinal: Gastrointestinal: Reports no additional gastrointestinal complaints [facility] Past Medical History Medical History Anoxic brain injury CAD (coronary artery disease) of artery bypass graft 2016 CHF (congestive heart failure) Chronic anemia Diabetes mellitus Hyperlipidemia Pacemaker Dual chamber [employer] pacemaker, 2016 Surgical History Surgical History Gastrointestinal tube in situ H/O mechanical aortic valve replacement 2016 History of aortic valve replacement
--- NOTE | 2021-09-17 14:23 | PM.IMHP ---
H&P: HPI History of Present Illness Date/Time: 09/17/21 14:23 this is a 66-year-old female patient who came from the snf earlier today with mucous plugging. Is reported that her trach was changed out today and she was sent back to the snf. She has a history of having a mitral valve replacement followed by cardiac arrest and anoxic brain injury status post tracheostomy. The patient was short of breath and having difficulty breathing upon arrival from the snf. The patient had thickened secretions and EMS suction around her O2 saturations improved. The patient was feeling fine once she got here however the snf was not able to accept her back. The patient did have a CT performed today which was read as no pulmonary embolus. Mild pulmonary edema. Small right pleural effusion. Cardiomegaly. Anterior chest wall wound with packing material. The patient was given a nebulizer treatment. Her white count is now down to 15.4 from her last white count of 20.2 2 weeks ago. Her H&H has improved to 9.0 in 30.6 from 7.4 and 24.72 weeks ago. Her pH on her ABGs 7.343 pCO2 47.4 O2 it 106.3. The patient has humidified oxygen at 6 L to her trach. Her blood sugars 366. The patient is being admitted to observation status on the date of service of 09/17/2021. ( I spoke with her son Severo and was able to retrieve some information. The patient was having difficulty time communicating with me. The son tells me that the patient does eat soft mechanical food and has not been getting any tube feedings. He is not sure why she still has a tube feeding. The patient did have some complications during surgery and was coded 2 times for brief period of time and developed anoxic brain injury. The patient recently received a new pacemaker and an another valve surgery and had complications from that surgery. The patient developed an infection and had a wound VAC to her right upper chest at 1 point. Currently there is she has packing in that abdominal wound now. The patient had been on antibiotics for the wound infection.) Chief Complaint: Shortness of breath Review of Systems Review of Systems: All systems reviewed & are unremarkable except as noted in HPI and below Constitutional: Constitutional: Reports as per HPI and Reports no additional constitutional complaints Eyes: Eyes: Reports as per HPI and Reports no additional eye complaints ENT: Reports system reviewed and no additional complaints, except as documented and Reports Normal hearing present Cardiovascular: Cardiovascular: Reports no additional cardiovascular complaints Respiratory: Respiratory: Reports no additional respiratory complaints and Reports no additional respiratory complaints Gastrointestinal: Gastrointestinal: Reports as per HPI and Reports no additional gastrointestinal complaints Musculoskeletal: Musculoskeletal: Reports no additional musculoskeletal complaints Integumentary/Breasts: Skin/Breast: Reports system reviewed and no additional complaints, except as docu and Reports as per HPI Neurologic: Reports system reviewed and no additional complaints, except as documented, Reports as per HPI and Reports Normal hearing present Psychiatric: Psychiatric: Reports no additional psychiatric complaints and Reports as per HPI Endocrine: Endocrine: Reports no additional endocrine complaints Hematologic/Lymphatic: Hematologic/Lymphatic: Reports no additional hematologic/lymphatic complaints Allergic/Immunologic: Allergic/Immunologic: Reports no additional allergic/immunologic complaints [facility] Past Medical History Medical History Anoxic brain injury CAD (coronary artery disease) of artery bypass graft 2015 CHF (congestive heart failure) Chronic anemia Diabetes mellitus Hyperlipidemia Pacemaker Dual chamber [employer] [facility] pacemaker, 2016 Surgical History Surgical History (Reviewed 09/17/21 @ 17:
--- NOTE | 2021-09-17 14:45 | PC.NURSE ---
Pt trach suctioned at this time.
--- NOTE | 2021-09-17 15:02 | PC.NURSE ---
Pt repositioned and provided pillow
--- NOTE | 2021-09-17 15:27 | PC.NURSE ---
Attempted to suction trach for sputum sample, unable to collect enough for sample.
[2021-09-17] MEDS: SODIUM CHLORIDE 0.9% IV 1,000 ML 50 ML IV CONT (16:08)
[2021-09-17 17:32] LABS: SARS-CoV-2 RNA PCR Negative
--- NOTE | 2021-09-17 17:36 | PC.NURSE ---
Pt moved onto hospital bed, pt trah suctioned.
[2021-09-17 17:46] LABS: Glucose Point of Care 325 mg/dl (65-105)
--- NOTE | 2021-09-17 17:50 | PC.NURSE ---
Lights dimmed at pt's request, bs checked.
--- NOTE | 2021-09-17 18:02 | PC.NURSE ---
ordered pt a diabetic tray.
--- NOTE | 2021-09-17 18:15 | PCCCNOTE ---
Addendum entered by Paulina Fitzpatrick RN 09/17/21 18:39: Correction: Chad unable to determine by admission notes if went to LTAC from [facility] but knows for certain patient was at [facility] and admitted to their facility on 08/30/21. Original Note: Called by senior front end web developer Carol to contact facility about patient back and forth from facility. Called to Cristiana at [facility] who directed call to shear helper Chad. Called to Chad, per records patient was at [facility] for Mitral valve replacement 05/18/22, Cardiac arrest. Trach placed 06/04. Patient discharged to LTAC and admitted to [facility] 08/30/21. On 08/31 trach dislodge and sent to hospital, Readmitted back to [facility] on 09/08, Trach dislodge again on 09/16 and here at [place]. Replaced and sent back this AM to facility, EMS for return to ER several hours after return, Sats down to 81% attempted to suction and sats down to 72%, EMS called and they suctioned with return of sats to 90% but patient continued to be SOB so transported back to ED. Advised that since patient has been back and forth, will be admitted for sputum cultures and trach care. Per Chad very high acuity with frequent suctioning. Discussed return of patient after DC since the patient is their resident. community relations coordinator to send notes that we have so far.
--- NOTE | 2021-09-17 18:41 | PC.NURSE ---
Pt had BM and while cleanin, pt noted to have tunneling wound to sacrum. Wound cleansed and redressed.
--- NOTE | 2021-09-17 18:42 | PC.NURSE ---
Trach suctioned, again, no sputum for collection.
--- NOTE | 2021-09-17 18:56 | PC.NURSE ---
Twyla sent to Chelsea MUÑOZ to inform of sacral wound.
--- NOTE | 2021-09-17 18:58 | PC.NURSE ---
Update given to WANDA Tran who has contacted wound care to see pt.
--- NOTE | 2021-09-17 21:48 | PC.NURSE ---
Pt turned, trach suctioned. Unable to collect enough sputum for specimen.
--- NOTE | 2021-09-17 22:07 | PCRCNOTE ---
Window of time for administration has passed. See next scheduled administration.
[2021-09-18] VITALS (19 sets, daily range): BP systolic 118–150; BP diastolic 50–71; PULSE 76–107; RESP 18–26; TEMP 36.3–36.6; O2SAT 95–100; BMI 10.0; BMI 29.0
--- NOTE | 2021-09-18 | ECHO_ITS ---
Patient Info Name: Irish Mtz Age: 66 years : 1955 Gender: Female Ht: 66 in Wt: 180 lbs BSA: 1.97 m2 HR: 76 bpm BP: 145 / 63 mmHg Heart Rhythm: Sinus Rhythm Technical Quality: Fair Exam Date: 09/18/2021 7:27 AM Exam Location: [facility] Patient Status: Inpatient Admit Date: 09/17/2021 Staff Ordering Physician: Chelsea Vuong NP Settlement Agent: Sandra Wick RDCS Attending Provider: Tatiana Zepeda PA-C Referring Physician: Carolann DAWN; Exam Type: CA echo dop color flow w con Study Info Indications - pleural effusion Complete two-dimensional, color flow and Doppler transthoracic echocardiogram is performed. Summary 1. Complete two-dimensional, color flow and Doppler transthoracic echocardiogram is performed. 2. Technically difficult study, suboptimal image quality. Severe left ventricular hypertrophy, small LV cavity size. Hyperdynamic LV systolic function, ejection fraction more than 70%. Diastolic dysfunction is present. RV enlargement with severe hypokinesis. Atria not well visualized.? Pacemaker lead in RA/RV. Mechanical mitral valve is seen with some reverberation artifact, not well visualized. Mean transmitral gradient 3 mmHg. Mechanical aortic valve is seen, maximum velocity 2 m/sec, mean gradient 8 mmHg. Mild TR, severe pulmonary hypertension, RVSP 76 mmHg. Left Ventricle Left ventricular chamber dimension is decreased. Left ventricular systolic function is hyperdynamic, estimated at >70%. There is severely increased left ventricular wall thickness. The left ventricular diastolic function is abnormal. E/e' 24.69 is abnormal. Right Ventricle Right ventricular chamber dimension is moderately enlarged. Right ventricular systolic function is reduced. Left Atria Left atrial chamber dimension is not well visualized. Right Atria Right atrial chamber dimension is not well visualized. Aortic Valve The aortic valve is not well visualized. Pulmonic Valve The pulmonic valve is not well visualized. Mitral Valve The mitral valve has not well visualized. Tricuspid Valve The tricuspid valve leaflets are normal. There is mild tricuspid valve regurgitation. Severe pulmonary hypertension, estimated pulmonary arterial systolic pressure is 76 mmHg. Pericardium/Pleural The pericardium appears normal. Aorta The aortic root size at the sinus of Valsalva is not well visualized. Left Ventricular Outflow Tract Name Value Normal LVOT 2D LVOT Diameter 1.94 cm LVOT Doppler LVOT Peak Gradient 2 mmHg LVOT Mean Gradient 1 mmHg LVOT VTI 13.68 cm LVOT VTI/AV VTI Ratio 0.45 LVOT Stroke Volume 40.58 ml LVOT CO 3.11 l/min LVOT CI 1.58 L/min/m2 Pulmonic Valve Name Value Normal RVOT Doppler
--- NOTE | 2021-09-18 00:48 | PC.NURSE ---
trach suctioned, sputum specimen collected at this time.
[2021-09-18] MEDS: ALBUTEROL SULFATE NEB 2.5 MG/0.5 ML INH 5 MG INHALATION ×4 (01:40→22:02)
[2021-09-18] MEDS: IPRATROPIUM BR 0.02% INH SOLN 0.5 MG/2.5 ML VIAL INHALATION ×4 (01:40→22:02)
--- NOTE | 2021-09-18 04:21 | ADMGEN ---
This patient, Irish Mtz, was admitted to Medical Room 248-01. Patient/family oriented to hospital policies and general routines including ID bracelet, bed and alarms, visiting hours, pain management, procedures, bathroom and other care routines, personal items, smoking policy, room service/diet, and visiting hours. Information on how to activate the Rapid Response Team has been discussed. Patient/Family are encouraged to report perceived risks to care and to ask questions if they do not understand what they are told or what they should do.
[2021-09-18 05:34] LABS: Basophils Absolute Auto 0.1 K/mm3 (0.0-0.1); Basophils Percent Auto 0.5 % (0.2-1.2); Eosinophils Absolute Auto 0.1 K/mm3 (0-0.3); Eosinophils Percent Auto 0.6 % (0-4.4); Hematocrit 29.1 % (37.0-47.0); Hemoglobin 8.6 g/dL (12.0-15.0); Immature Granulocyte Absolute 0.07 K/mm3 (0.00-0.031); Immature Granulocyte Percent A 0.6 % (0-0.5); Lymphocytes Absolute Auto 2.24 K/mm3 (0.9-3.2); Lymphocytes Percent Auto 19.4 % (18.3-44.2); Mean Corpuscular HGB Conc 29.6 g/dl (32-36); Mean Corpuscular Hemoglobin 23.4 pg (26-34); Mean Corpuscular Volume 79.3 fl (80-100); Mean Platelet Volume 8.8 fl (7.4-10.4); Monocytes Absolute Auto 1.3 K/mm3 (0.1-0.6); Monocytes Percent Auto 11.5 % (2.6-8.5); Neutrophils Absolute Auto 7.8 K/mm3 (1.3-6.7); Neutrophils Percent Auto 67.4 % (45.5-73.1); Platelet Count Result 570 k/mm3 (150-375); Red Blood Count 3.67 M/mm3 (4.2-5.4); Red Cell Distribution Width 21.1 % (11.5-14.5); White Blood Count 11.6 K/mm3 (4.5-10.0)
[2021-09-18 05:47] LABS: Alanine Aminotransferase 28 U/L (4-35); Albumin Level 3.1 g/dL (3.5-5.1); Alkaline Phosphatase 202 U/L (38-126); Anion Gap 6 mmol/L (8-16); Aspartate Amino Transferase 26 U/L (14-36); Bilirubin,Total 0.5 mg/dL (0.2-1.3); Blood Urea Nitrogen 20 mg/dL (7-17); CRP 3.2 mg/dL (<1.0); Calcium 8.8 mg/dL (8.4-10.2); Carbon Dioxide 27 mmol/L (22-30); Chloride 101 mmol/L (98-107); Estimated CRCL calculation 86 ml/min; Estimated Glomerular Filt Rate > 60; Glucose 253 mg/dL (65-110); Lactate Dehydrogenase 618 U/L (313-618); Magnesium 1.9 mg/dL (1.6-2.3); Potassium 4.5 mmol/L (3.4-5.0); Sodium 134 mmol/L (137-145)
[2021-09-18 05:48] LABS: Lactic Acid Reflex 1.4 mmol/L (0.7-2.1)
[2021-09-18 07:51] LABS: Anisocytosis 1+ (NORMAL); Hypochromasia 1+ (NORMAL); Platelet Estimate Increased (Adequate)
[2021-09-18 08:16] LABS: Glucose Point of Care 237 mg/dl (65-105)
[2021-09-18] MEDS: PERFLUTREN LIPID MICROSPHERES 1.5 ML VIAL DILUTED TO 10 ML TOTAL VOLUME IV PUSH (08:43)
--- NOTE | 2021-09-18 08:43 | IVDEFINITY ---
Prior to administration of IV Definity the patient was educated on the risks and benefits of the imaging enhancing agent including potential adverse side effects. The patient verbalized understanding. Allergies were verified. No exclusion criteria were identified and at least one of the following inclusion criteria were met: 1) physician request, 2) patient technically difficult to image (per the [place] [employer] guidelines of two or more segments not discernable within the apical view), or 3) questionable left ventricular function. ?
[2021-09-18 08:46] LABS: INR 1.7; Prothrombin Time 19.3 Seconds (11.1-14.7)
[2021-09-18] MEDS: INSULIN ASPART (*BKC) 100 UNITS/ML SUB-Q ×3 (09:17→17:05)
[2021-09-18] MEDS: PANTOPRAZOLE 40 MG TABLET PO ×2 (09:18→16:46)
[2021-09-18] MEDS: FUROSEMIDE 20 MG TABLET PO (09:18)
[2021-09-18] MEDS: CHOLECALCIFEROL 1,000 UNITS TABLET 1000 UNITS PO ×2 (09:18→16:46)
[2021-09-18] MEDS: LATANOPROST 0.005% OP SOLN 2.5 ML BTL 1 DROP RIGHT EYE (09:18)
[2021-09-18] MEDS: METOPROLOL TARTRATE 50 MG TAB PO ×2 (09:21→21:25)
[2021-09-18] MEDS: INSULIN GLARGINE (*BKC) 100 UNITS/ML 15 UNITS SUB-Q ×2 (09:25→17:04)
--- NOTE | 2021-09-18 10:48 | PM.IMPN ---
Progress Note: A&P Assessment and Plan (1) Sacral decubitus ulcer: Code(s): L89.159 - Pressure ulcer of sacral region, unspecified stage Status: Acute Assessment and Plan: Was at bedside with wound care when evaluating her sacral decubitus ulcer, there is an odor present, large ulcer with tunneling to her spine bone. Wound culture was taken Care as per wound care team Trying to obtain records from is repacked test as to their plan with maintenance care from the sacral decubitus ulcer White count is elevated, but trending down today with a normal neutrophil count today. Potentially could be chronic wounds without acute infection, but will wait for wound cultures, blood cultures and sputum cultures at this time. Will start IV antibiotics imipenem and vancomycin #1 Will hold off on surgical consultation at this time (2) Wound of left breast: Code(s): S21.002A - Unspecified open wound of left breast, initial encounter Status: Acute Assessment and Plan: Was at bedside with wound care when evaluating her left breast wound with tunneling down to her rib. Good granulation tissue. No odor. Appreciate room care recommendations Did start on broad-spectrum IV antibiotics for sacral wound until further notes can be obtained from mother at [facility] and cultures resulted (3) Acute dyspnea: Code(s): R06.00 - Dyspnea, unspecified Status: Inactive Assessment and Plan: The patient had been to the ER with SOB and found to have some mucus plugging to the trach. ER provider attempted to send the patient back to the alf and it was reported that the alf would not allow the patient to come back. Patient not in any respiratory distress at this time, 95% at Trach Collar with O2 7%. Continue monitoring (4) Mucus plugging of bronchi: Code(s): T17.500A - Unspecified foreign body in bronchus causing asphyxiation, initial encounter Status: Acute Assessment and Plan: Continue with p.r.n. sectioning. The patient is currently getting humidified oxygen at 7 L to the trach. Continue with nebulizer treatments. Continue with trach care. (5) Pacemaker lead malfunction: Code(s): T82.110A - Breakdown (mechanical) of cardiac electrode, initial encounter Status: Acute Assessment and Plan: Patient had surgery at [facility] for pacemaker replacement. I am awaiting her records. (6) CAD (coronary artery disease) of artery bypass graft: Code(s): I25.810 - Atherosclerosis of coronary artery bypass graft(s) without angina pectoris Status: Acute Assessment and Plan: The patient has had 2 valve replacements in the past and [facility] I am awaiting the records. (7) H/O mechanical aortic valve replacement: Code(s): Z95.2 - Presence of prosthetic heart valve Status: Acute Assessment and Plan: Awaiting records from [facility]. (8) Feeding by G-tube: Code(s): Z93.1 - Gastrostomy status Status: Acute Assessment and Plan: Dietitian consulted and getting information from her last hospitalization. (9) Diabetes mellitus with hyperglycemia: Qualifiers: Diabetes mellitus termite inspector insulin use: with termite inspector use Diabetes mellitus type: type 2 Qualified Code(s): E11.65 - Type 2 diabetes mellitus with hyperglycemia; Z79.4 - skilled nursing (current) use of insulin Code(s): E11.65 - Type 2 diabetes mellitus with hyperglycemia Status: Acute Assessment and Plan: Hemoglobin A1c is 8.0. Will continue her Haja
[2021-09-18 11:47] LABS: Glucose Point of Care 331 mg/dl (65-105)
[2021-09-18] MEDS: TOLNAFTATE 1% POWDER 45 GM BTL 1 APPLIC TOPICAL ×2 (11:58→21:26)
[2021-09-18] MEDS: POTASSIUM PHOS/SODIUM PHOS 250 MG TABLET PO ×2 (11:58→16:46)
[2021-09-18] MEDS: ACETAMINOPHEN 325 MG TABLET 650 MG PO (11:59)
[2021-09-18] MEDS: metroNIDAZOLE 250 MG TABLET 500 MG PO ×2 (12:02→21:25)
--- NOTE | 2021-09-18 15:52 | PC.NURSE ---
On 09/18/21, the student Zully Ortiz, provided care and completed [employer] documentation on this patient. I have reviewed the students documentation on this patient. I have reviewed the students documentation and agree with the findings.
--- NOTE | 2021-09-18 15:53 | PC.NURSE ---
On 09/18/21, the student Tomás Cassidy provided care and completed [employer]ep documentation on this patient. I have reviewed the students documentation on this patient. I have reviewed the students documentation and agree with the findings, except the patient has a mechanical valve and the student documented a murmur instead of a mechanical click under the cardiovascular assessment.
[2021-09-18] MEDS: FUROSEMIDE INJ 40 MG/4 ML VIAL IV PUSH (16:46)
[2021-09-18] MEDS: SOD HYPOCHLORITE 1/4 STRENGTH 473 ML 1 APPLIC TOPICAL (16:46)
[2021-09-18 17:04] LABS: Glucose Point of Care 365 mg/dl (65-105)
[2021-09-18] MEDS: WARFARIN (*PBKC) 5 MG TABLET PO (17:08)
[2021-09-18 20:49] LABS: Glucose Point of Care 338 mg/dl (65-105)
[2021-09-18] MEDS: MIRTAZAPINE 15 MG TABLET PO (21:25)
[2021-09-18] MEDS: ATORVASTATIN 20 MG TABLET FEED TUBE (21:26)
[2021-09-18] MEDS: SERTRALINE HCL 50 MG TABLET PO (21:26)
--- NOTE | 2021-09-18 23:28 | PDCODEBLUE ---
Code Blue Note Code Blue Note Time Arrived at Code Blue: 2299 Initial Rhythm on Arrival: Asystole Airway Management: Tracheosto Chest Compressions: In process on arrival to bedside Result of Code Blue: Pt (2317) Cardiac Rhythm Post Code: Asystole Code Hannah Summary: A isaías hannah was called when the patient was found without a pulse respirations. Initial rhythm was asystole. She has a pacemaker however there there was no heart rhythm to capture. Chest pressure were performed. Respiratory was having difficulty bagging the trach. Be made several attempts to suction the trach. We also suction the oral airway. We repositioned her head and placed a tile under head and we were able to back her more easily. The patient was given for doses of epinephrine and 2 doses of bicarb. ER physician came to the code. He and I both were both familiar with her past medical history. I called her son Severo and explained that we could not get her heart rate to return and that there was no heart rate for the pace maker to capture. Her son Severo stated that he would be coming from [place] to see the patient. I explained that there was no toney and that he should take his time.
--- NOTE | 2021-09-18 23:29 | PC.NURSE ---
2305 CALLED INTO ROOM PER NA, PT WITHOUT RESPIRATIONS OR HEART RATE. CODE BLUE CALLED.
[2021-09-18 23:30] LABS: Glucose Point of Care 321 mg/dl (65-105)
--- NOTE | 2021-09-18 23:49 | PC.NURSE ---
2310 CALLED SON SHAREE
--- NOTE | 2021-09-19 01:09 | PC.NURSE ---
ADE HENSON'Marie JACINTO DC'Marie SHROUDED AND SENT TO [facility] IN [place]
--- NOTE | 2021-09-21 08:58 | PM.DDS ---
Discharge Summary Date and Time Date of : 09/18/21 Time of : 23:18 Probable Cause of Probable Cause of : Clogged tracheostomy, respiratory failure Summary Hospital Course: The patient is a 70-year-old woman with a history of valve replacement in April 2021 where she coded 2 times and had anoxic brain injury, tracheostomy, G-tube feedings, sacral decubitus ulcer to bone, large open wound under right breast down to bone/ribs, who was just at our facility on September 01, 2021 and transfer to [facility] on September 02, 2021 where she receives all of her care for pneumonia, CHF, acute hypoxia, pacemaker malfunction. From what I understand the patient had just been discharged from [facility] on September 16 or and on arrival to her SNF facility she was found to be short of breath and the facility was unsure how to suction her trach and called EMS to bring her to the emergency room. After the patient's trach was suction she was breathing a lot easier. Initial vitals showed blood pressure 151/59, heart rate 96, increased respiratory rate 33, afebrile, under % oxygenation with trach collar at 6 L a minute. Initial labs showed leukocytosis at 15,400, elevated neutrophil count 84%, normocytic anemia with a hemoglobin of 9.0, hematocrit 30%. INR 1.9, PT elevated at 21.2. ABG showed slightly acidic pH was 7.343, pCO2 slightly elevated at 47, PO2 106, HC03 is 25 on 6 L via trach. Hyponatremia at 130, normal creatinine 0.6, elevated BUN at 18, glucose 366. BNP 7860 . Urinalysis showing 3+ protein, 2+ blood, greater than 75 RBCs, no signs of an acute UTI. Chest x-ray showed airspace opacities in the perihilar regions, likely mild pulmonary edema. Cardiomegaly. CTA of the chest was completed showing no PE. Mild pulmonary edema. Small right pleural effusion. Cardiomegaly. Anterior wall wound with packing material in place. Emergency room doctor tried to discharge the patient back to her SNF facility after she was breathing better with suctioning her trach. The facility did not accept her back so she was admitted into our hospital under observation status. Upon my evaluation of the patient the next day, she was resting comfortably asking for more water in her cup. I was at bedside with the patient's nurse and wound nurse evaluating her sacral decubitus ulcer and right large breast wound down to the bone/rib. Cultures were taken of both areas at that time. I started the patient on broad-spectrum antibiotics with IV ertapenem and vancomycin for coverage until wound cultures come back and further information could be sent from was repacked is were she had just been discharged. The patient's labs otherwise had been improving that morning with an improvement of her white count 50419, stable H&H. Normal neutrophil count and CMP. CRP was just minimally elevated at 3.2. TSH normal. I also started the patient on IV Lasix due to the mild pulmonary edema which could have been causing some of her shortness of breath. The patient otherwise been resting comfortably and had no further calls for her throughout the day. It appears she had been found in her room, unresponsive and blue in color. Patient was a full code and a code blue was called. Please see code blue event report for further information. The patient was not able to be revived and her son was notified by the provider on at that time. The patient was pronounced at 2318. Additional Data Confirmation of as documented by pronouncing clinician: Pupillary Reflex, Palpable Pulses, Response to Stimuli, Heart Tones and Breath Sounds Name of Provider Notified: Chelsea Vuong Time Provider Notified: 23:18 Provider Requests Autopsy: No Family Requests Autopsy: No Operations Program Manager Notified: Yes Date [facility] Notified of : 09/18/21 Time [facility] Notified of : 23:55
== END 2021-09-18 23:18 | disposition expired ==
LOC: ANHED 14:57 → ANH3MEDSUR 17:40 → ANH2MED 09-18 04:47 → ANH3MEDSUR 09-18 11:15
PROVIDERS: Nurse Practitioner; Admitting Provider Internal Medicine; Emergency Provider Family Medicine; PCP Internal Medicine; Visit Provider Physician Assistant
DX: J96.90 Respiratory failure, unspecified, unspecified whether with hypoxia or hypercapnia (principal); T17.590A Other foreign object in bronchus causing asphyxiation, initial encounter; L89.154 Pressure ulcer of sacral region, stage 4; S21.002A Unspecified open wound of left breast, initial encounter; D72.829 Elevated white blood cell count, unspecified; E87.1 Hypo-osmolality and hyponatremia; J90 Pleural effusion, not elsewhere classified; I11.0 Hypertensive heart disease with heart failure; E11.65 Type 2 diabetes mellitus with hyperglycemia; I50.9 Heart failure, unspecified; G93.1 Anoxic brain damage, not elsewhere classified; I25.10 Atherosclerotic heart disease of native coronary artery without angina pectoris; I25.810 Atherosclerosis of coronary artery bypass graft(s) without angina pectoris; E78.5 Hyperlipidemia, unspecified; D64.9 Anemia, unspecified; Z95.0 Presence of cardiac pacemaker; Z95.1 Presence of aortocoronary bypass graft; Z95.2 Presence of prosthetic heart valve; Z79.4 Long term (current) use of insulin; Z79.82 Long term (current) use of aspirin; Z79.51 Long term (current) use of inhaled steroids; Z79.01 Long term (current) use of anticoagulants; Z93.0 Tracheostomy status; Z93.1 Gastrostomy status; Z20.822 Contact with and (suspected) exposure to COVID-19
CPT/HCPCS: 36415; 36600; 71045; 71275; 80053; 81001; 82805; 82948; 83036; 83605; 83615; 83735; 83880; 84443; 85025; 85610; 85730; 86140; 87040; 87070; 87077; 87147; 87181; 87186; 87205; 92950; 93005; 94640; 96374; 97163; 97167; 99285; A9270; C8929; C9803; G0378; G0379; J0171; J0743; J1815; J1940; J3370; J7030; Q9957; Q9967; U0003; U0005